=== PATIENT | male | born 1935 | race Caucasian/White ===

== ENCOUNTER 2017-08-12 04:23 | Inpatient (IN) | payer MEDICARE, OTHER ==
[~2017-08-12] VITALS: Ht 170.2 cm; Wt 65.1 kg
[2017-08-12] MEDS ORDERED: ZOLO50TA PO (04:36)
[2017-08-12 05:18] LABS: BASO % 0.3 % (0.0-1.0); EOS % 0.1 % (0.0-3.0); IMMATURE GRANULOCYTE % 0.6 % (0-0); LYMPH # 0.7 10^3/uL (1.5-4.5); LYMPH % 6.3 % (24.0-44.0); MEAN CORPUSCULAR HEMOGLOBIN 33.3 pg (27.0-33.0); MEAN CORPUSCULAR HGB CONC 34.7 g/dl (32.0-36.5); MONO % 8.1 % (0.0-5.0); NEUTROPHILS # 9.9 10^3/uL (1.8-7.7); NEUTROPHILS % 84.6 % (36.0-66.0); PLATELET COUNT, AUTOMATED 195 10^3/uL (150-450); RED CELL DISTRIBUTION WIDTH 13.2 % (11.5-14.5); VENOUS BASE EXCESS -0.6 (-2.0-2.0); VENOUS O2 SATURATION 52.9 % (60.0-80.0); VENOUS PARTIAL PRESSURE CO2 40.6 mmHg (38.0-50.0); VENOUS PARTIAL PRESSURE O2 28.3 mmHg (30.0-50.0); VENOUS TOTAL CO2 25.4 MEQ/L (24.0-28.0); WHITE BLOOD COUNT 11.7 10^3/uL (4.0-10.0)
--- NOTE | 2017-08-12 05:40 | REPUSA ---
CLINICAL HISTORY: Altered mental status. TECHNIQUE: Multiple axial CT images were obtained through the brain without IV contrast material. COMMENTS: Comparison to prior exam performed on 08/26/2016. Unchanged left cerebellar chronic encephalomalacia. There is normal configuration of sella turcica. There are no intra or extra-axial collections. There is no mass effect or midline shift. There is no evidence of hematoma formation. No hydrocephalus is p resent. The ventricles are symmetrical. No abnormal calcifications are present. There is diffuse age-appropriate cerebellar and cerebral atrophy with proportionally dilated ventricl es and cortical sulci. There are bilateral periventricular and subcortical white matter hypolucencies compatible with mild c hronic microvascular disease. Otherwise, no significant focal abnormalities are seen either in the posterior fossa or supratentoria l compartment. IMPRESSION: 1. Age-appropriate cerebellar and cerebral atrophy. 2. Mild chronic microvascular disease. 3. No evidence of acute intracranial pathology. Unchanged cerebellar chronic encephalomalacia. Thank you for your kind referral of this patient.
[2017-08-12 05:44] LABS: ALBUMIN 3.2 GM/DL (3.2-5.2); ALKALINE PHOSPHATASE 62 U/L (45-117); ALT/SGPT 41 U/L (12-78); ANION GAP 7 MEQ/L (8-16); AST/SGOT 138 U/L (7-37); BILIRUBIN,DIRECT 0.2 MG/DL (0.0-0.2); BILIRUBIN,TOTAL 0.9 MG/DL (0.2-1.0); BLOOD UREA NITROGEN 22 MG/DL (7-18); CALCIUM LEVEL 8.4 MG/DL (8.8-10.2); CARBON DIOXIDE LEVEL 29 MEQ/L (21-32); CHLORIDE LEVEL 105 MEQ/L (98-107); CREATININE FOR GFR 0.97 MG/DL (0.70-1.30); GLOMERULAR FILTRATION RATE > 60.0 (>35); GLUCOSE, FASTING 93 MG/DL (83-110); POTASSIUM SERUM 3.4 MEQ/L (3.5-5.1); SODIUM LEVEL 141 MEQ/L (136-145); TOTAL PROTEIN 6.4 GM/DL (6.4-8.2)
[2017-08-12] MEDS ORDERED: NS 1,000 ML IV ONE (06:30)
[2017-08-12 07:10] LABS: METHADONE URINE NEGATIVE (NEGATIVE)
[2017-08-12] MEDS ORDERED: NS 500 ML IV ONE (08:15)
--- NOTE | 2017-08-12 08:50 | REP ---
Clinical: Altered mental status. Comparison: None. Findings: Mediastinum and cardiac silhouette are within normal limits. Hiatal hernia suggested. Lung aden demonstrate chronic interstitial changes and trace basilar atelectasis cannot be excluded. No pleural effusion. Skeletal structures demonstrate degenerative changes. There is a curvilinear veil of opacity involving the right hemithorax paralleling the inner margin of the right chest wall which likely represents artifact and less likely pneumothorax. Correlation however is recommended. Impression: 1. Chronic-appearing changes cannot exclude trace basilar atelectasis. 2. Veil of opacity parallels the right chest wall likely artifact and less likely pneumothorax. However, correlation is recommended. Signed by Asif Meeks MD 08/12/2017 08:43 A
[2017-08-12] MEDS ORDERED: ONDANSETRON 4MG/2ML VIAL (J2405) IV PRN (09:15)
[2017-08-12] MEDS ORDERED: VITA10002 PO (09:53)
[2017-08-12] MEDS ORDERED: FISH1000 PO (09:53)
[2017-08-12] MEDS ORDERED: BUDE3CAP PO (09:53)
[2017-08-12] MEDS ORDERED: FLOM5CAP PO (09:53)
[2017-08-12] MEDS ORDERED: CARB25TA PO (09:53)
[2017-08-12] MEDS ORDERED: ASPI81CH3 PO (09:53)
[2017-08-12] MEDS ORDERED: METO5TAB2 PO (10:03)
[2017-08-12 10:32] LABS: OSMOLALITY SERUM 295 MOSM/KG (280-301)
--- NOTE | 2017-08-12 10:32 | HPE ---
DATE OF ADMISSION: 08/12/2017 PRIMARY CARE PROVIDER: [facility] CHIEF COMPLAINT: Fall. HISTORY OF PRESENT ILLNESS: The patient is an 81-year-old man who lives alone, who was reportedly found down at home and was unable to get up and walk. The patient, himself does not remember the circumstances of his fall. He denies any prodromal symptoms. Cannot remember if he slipped and fell. The patient did use his Life Alert to call 911. As per the emergency room documentation, the apartment smelled like urine and the patient had been crawling on the floor. He was slow to respond and only followed some commands. The patient at this time cannot recall what happened but he remembers being on the floor. Remembers attempting to crawl and get to the phone but was unable to. He denies head trauma. He denies any pain at the present time. Denies feeling unwell and that he feels too weak. He is unable to walk. PAST MEDICAL HISTORY: Depression. Constipation. Benign prostatic hypertrophy. Dementia. Anemia. Celiac disease. Gastroesophageal reflux disease. Dyslipidemia. Osteoarthritis. Peripheral vascular disease. HOME MEDICATIONS: The patient is unable to recall his medications. This has not been reviewed by pharmacy as yet. I did ask the pharmacy to review his medications and hopefully a medical record and possibly obtaining a list from [facility]. PAST SURGICAL HISTORY: Right total knee replacement. Bilateral cataract surgery. ALLERGIES: No known drug allergies SOCIAL HISTORY: He lives alone. He has a sister who is 85. He smoked cigars for 15 years. He has not smoked for many years and has not had alcohol for many years. FAMILY HISTORY: Noncontributory. REVIEW OF SYSTEMS: Negative except for the history of present (HPI). PHYSICAL EXAMINATION: Temperature 99.3, pulse 78, respiratory rate 16, blood pressure 142/67, oxygen saturation 97% on room air. GENERAL: He is a frail elderly man sitting up on a stretcher. He is awake, alert, and oriented times three. He mumbles his responses and is slow to respond but does give appropriate answers to all questions and admits when he is unable to remember details. HEENT: He is normocephalic, atraumatic. He has mildly dry mucous membranes. No raise in CVP. CARDIOVASCULAR: S1, S2 regular. RESPIRATORY: Exam is actually quite clear. ABDOMEN: Benign. EXTREMITIES: No clubbing cyanosis or edema. NEURO: Exam is nonfocal. LABORATORY STUDIES: WBC 11.7, hemoglobin 11.8, platelet count 195. Chemistry panel: Sodium 141, potassium 3.4, chloride 105, bicarbonate 29, BUN 22, creatinine 0.9. Lactic acid 1.4. AST elevated at 138, ammonia is less than 10. CK is elevated at 5922, troponin 0.15. A repeat 2 hours later is 0.12. TSH within normal limits. Toxicology is unremarkable. Urinalysis: 4 WBC, 2+ urobilinogen, 3+ blood and 1+ ketones, 2+ protein. Urine cultures and blood cultures are currently pending. IMAGING: The patient had a chest x-ray which reveals chronic appearing changes, alveolar opacity parallels the right chest wall likely artifact and less likely pneumothorax. He also did have a CT scan of the head which revealed age-appropriate cerebellar and cerebral atrophy with mild chronic microvascular disease. No evidence of acute intracranial pathology. ASSESSMENT/PLAN: This is an 81-year-old man status post an unwitnessed syncopal episode and was unable to get up presenting with rhabdomyolysis. PROBLEMS: 1. Syncope: The etiology remains unclear. The patient does have some evidence of documented history of dementia. At the present time, he is oriented times three. However, we will obtain records from his primary care provider and begin syncope workup. We will continue to monitor him on telemetry. Monitor his cardiac enzymes. Will check orthostatics. Order an echocardiogram. I will also check a respiratory PCR panel as he does cough during my examination. He tells me that this is new. This may be secondary to a viral syndrome. There is also the possibility that this is related to a urinary tract infection, although his urine is not terribly impressive. He was reportedly incontinence at home. I am going on the side of caution and start him on ceftriaxone IV every 24 hours and followup culture data with threshold to discontinue if it return negative. He did not have any focal deficits or any neurological deficits. At this time I will hold on getting an MRI of the brain. It does not appear as though he is having a cerebrovascular accident (CVA). We will also obtain his home medication list and piece it together. Patient/Family Services (PFS) consultation will be placed as the patient lives alone as may not be suitable to return there. I will also involve physical therapy (PT) and occupational therapy (OT) as well. 2. Rhabdomyolysis: The patient was down on the ground for an unknown length of time likely secondary to this. We will provide him with IV fluids, monitor his renal function closely and trend his CKs in the progressive care unit. 3. Elevated AST likely related to rhabdomyolysis. 4. Hypokalemia: Mild. Will continue to recycle his electrolytes and recheck a BMP this afternoon and replace as needed. 5. Dementia: The patient has a normal TSH. He had a reported history of depression and on our documentation was previously on sertraline. Will obtain a previous records. Dementia appears to be mild to moderate at this time. 6. Benign prostatic hypertrophy (BPH): He was positive for a documented history of this. He is on no medication, so we are starting him on medications as needed. 7. Celiac disease: Put him on a gluten-free diet. 8. Deep venous thrombosis prophylaxis: SCDs & TEDS DISPOSITION: Possible placement pending improvement. I will continue to follow his clinical status closely. IDRIS
[2017-08-12 11:10] VITALS: BP 128/61
[2017-08-12] MEDS: CEFTRIAXONE SOD 1 GM in APPROPRIATE DILUENT 1 EA IV SCH (11:15)
[2017-08-12] MEDS: ENOXAPARIN 40 MG/0.4 ML SYRINGE (J1650) SC SCH (11:15)
[2017-08-12] MEDS: NS 1,000 ML IV SCH ×2 (11:15→21:20)
[2017-08-12 14:00] VITALS: BP_SYST 128; BP_SYST 151; BP_DIAS 62; BP_DIAS 72
[2017-08-12 15:54] LABS: ANION GAP 7 MEQ/L (8-16); BLOOD UREA NITROGEN 21 MG/DL (7-18); CALCIUM LEVEL 8.4 MG/DL (8.8-10.2); CARBON DIOXIDE LEVEL 24 MEQ/L (21-32); CHLORIDE LEVEL 109 MEQ/L (98-107); GLOMERULAR FILTRATION RATE > 60.0 (>35); GLUCOSE, FASTING 102 MG/DL (83-110); POTASSIUM SERUM 3.7 MEQ/L (3.5-5.1); SODIUM LEVEL 140 MEQ/L (136-145)
[2017-08-12 16:00] VITALS: BP 154/74
[2017-08-12] MEDS: ACETAMINOPHEN TAB 650MG DOSE (2X325MG) PO PRN (17:08)
[2017-08-12] MEDS ORDERED: METOCLOPRAMIDE 5 MG TAB PO PRN (18:00)
[2017-08-12] MEDS ORDERED: IBUPROFEN 400 MG TAB PO PRN (18:00)
[2017-08-12 20:00] VITALS: BP 152/74
[2017-08-12] MEDS: SINEMET 25-100 MG TAB PO SCH (21:20)
[2017-08-12] MEDS: TAMSULOSIN 0.4 MG CAP PO SCH (21:20)
[2017-08-13] VITALS (9 sets, daily range): BP systolic 72–178; BP diastolic 67–89
[2017-08-13] MEDS ORDERED: hydrALAZINE INJ 20 MG/ML VIAL IV ONE (04:30)
[2017-08-13] MEDS: AZITHROMYCIN INJ 500 MG, VIAL MATE ADAPTER 1 EACH in D5W 250 ML IV SCH (06:51)
[2017-08-13 08:00] LABS: ALBUMIN 2.7 GM/DL (3.2-5.2); ALBUMIN/GLOBULIN RATIO 0.71 (1.00-1.93); ALKALINE PHOSPHATASE 60 U/L (45-117); ALT/SGPT 52 U/L (12-78); ANION GAP 8 MEQ/L (8-16); AST/SGOT 138 U/L (7-37); BILIRUBIN,TOTAL 0.5 MG/DL (0.2-1.0); BLOOD UREA NITROGEN 21 MG/DL (7-18); CARBON DIOXIDE LEVEL 27 MEQ/L (21-32); CHLORIDE LEVEL 107 MEQ/L (98-107); CREATININE FOR GFR 0.94 MG/DL (0.70-1.30); GLOMERULAR FILTRATION RATE > 60.0 (>35); GLUCOSE, FASTING 89 MG/DL (83-110); POTASSIUM SERUM 3.4 MEQ/L (3.5-5.1); SODIUM LEVEL 142 MEQ/L (136-145); TOTAL PROTEIN 6.5 GM/DL (6.4-8.2)
--- NOTE | 2017-08-13 08:04 | ECGEPIP ---
Stationary ECG Study [facility] - ED Test Date: 2017-08-12 Pat Name: JHON FOSS Department: Room: - Gender: M Wrapper Counter: KELLEY : 1935 Requested By: ARCELIA Goldman Order Number: [id number] Reading MD: Mago Guillaume Measurements Intervals [place] Rate: 80 P: -7 CO: 152 QRS: -43 QRSD: 112 T: 38 QT: 393 QTc: 454 Interpretive Statements SINUS RHYTHM WITH OCCASIONAL SUPRAVENTRICULAR PREMATURE COMPLEXES MARKED LEFT AXIS DEVIATION MODERATE INTRAVENTRICULAR CONDUCTION DELAY MODERATE VOLTAGE CRITERIA FOR LVH, CONSIDER NORMAL VARIANT NO PRIOR FOR COMPARISON Electronically Signed On 08-13-2017 8:03:51 EST by Mago Guillaume
[2017-08-13] MEDS: ASPIRIN 81 MG CHEW TABLET PO SCH (09:37)
[2017-08-13] MEDS: CYANOCOBALAMIN 500 MCG TAB PO SCH (09:38)
[2017-08-13] MEDS: ENOXAPARIN 40 MG/0.4 ML SYRINGE (J1650) SC SCH (09:38)
[2017-08-13] MEDS: BUDESONIDE EC 3 MG CAP (ENTOCORT EC) PO SCH (09:38)
[2017-08-13] MEDS: SINEMET 25-100 MG TAB PO SCH ×3 (09:38→20:37)
[2017-08-13 11:31] LABS: MAGNESIUM LEVEL 2.2 MG/DL (1.8-2.4)
[2017-08-13] MEDS: CEFTRIAXONE SOD 1 GM in APPROPRIATE DILUENT 1 EA IV SCH (12:14)
[2017-08-13] MEDS: NS 1,000 ML IV SCH (13:21)
[2017-08-13] MEDS ORDERED: POTASSIUM CHLORIDE 10 MEQ SR TABLET PO ONE (16:15)
[2017-08-13 17:14] LABS: MEAN CORPUSCULAR HEMOGLOBIN 32.8 pg (27.0-33.0); MEAN CORPUSCULAR HGB CONC 34.5 g/dl (32.0-36.5); MEAN CORPUSCULAR VOLUME 95.1 fl (80.0-96.0); PLATELET COUNT, AUTOMATED 173 10^3/uL (150-450); RED CELL DISTRIBUTION WIDTH 13.2 % (11.5-14.5); WHITE BLOOD COUNT 7.9 10^3/uL (4.0-10.0)
[2017-08-13 17:40] LABS: VITAMIN B12 LEVEL 646 PG/ML (247-911)
--- NOTE | 2017-08-13 17:42 | IPN ---
DATE: 08/13/2017 SUBJECTIVE: The patient tells me that he is "having the shits." He tells me that he feels better than yesterday. He tells me that he was unable to walk yesterday, but today he is able to get up and get to the commode. He is awake, alert and oriented times three. He is very slow to answer questions, but does provide appropriate responses. OBJECTIVE: VITAL SIGNS: Maximum temperature (T-max) 100.3 yesterday evening, around 6 p.m., temperature at 99.1, pulse 95, respiratory rate 18, blood pressure 145/82, oxygen saturation 97% on room air. GENERAL: He is a disheveled, elderly man who was sleeping when I entered the room, but easily arousable by verbal stimuli and then immediately stands up and walks to the bedside commode, where he begins to have a bowel movement. He does not appear to be in acute distress. HEENT: Cranial nerves II-XII grossly intact. He has moist mucous membranes. No elevation of central venous pressure (CVP). CARDIOVASCULAR: S1, S2. He is mildly tachycardic. RESPIRATORY EXAMINATION: Clear. ABDOMINAL EXAMINATION: Bowel sounds present. Abdomen soft. EXTREMITIES: No clubbing, cyanosis or edema. LABORATORY STUDIES: Today, chemistry panel: Sodium 142, potassium 3.4, repleted, chloride 107, bicarbonate 27, BUN 21, creatinine 0.9, magnesium 2.2. AST remains elevated at 130. CK is 4400, down from 5900 yesterday at the time of admission. Thyroid stimulating hormone (TSH) within normal limits. Ammonia level within normal limits. He did have some mild elevation of troponin at 0.15, which has trended down to normal limits. Toxicology was negative. Urinalysis was fairly unremarkable. Microbiology: Blood cultures were negative. Urine cultures are negative. Respiratory polymerase chain reaction (PCR) panel is negative. Imaging: Patient had a chest x-ray that revealed chronic-appearing changes as well as CT scan of the head, which revealed age-appropriate cerebellar and cerebral atrophy and mild, chronic microvascular disease. No evidence of acute intracranial pathology. Unchanged cerebellar chronic encephalomalacia. ASSESSMENT AND PLAN: This is an 81-year-old man status post an unwitnessed syncopal episode and was unable to get up, presenting with rhabdomyolysis. PROBLEMS: 1. Syncope. The etiology remains unclear. The patient is oriented, but very slow to respond. His neurological examination was nonfocal; however, given his CT findings, I do have some mild concern for frontal temporal dementia or vascular dementia and as such, I will elect to check for an MRI. I will also check for a B12 level, rapid plasma reagin (RPR) and rule out other etiologies. I suspect he could have acute on chronic or worsening dementia. He complains of frequent bowel movements. I will send a gastrointestinal (GI) polymerase chain reaction (PCR) panel to rule out any infectious etiologies. He has had a fever and I suspect this syndrome is presenting as secondary to an infectious etiology; however, thus far, all of his infectious workup has been negative. He has remained on empiric ceftriaxone and azithromycin. It is also certainly possible that his dementia is partly related to his Parkinson's disease. At this time, he does appear to be improving in term of his functional status, as yesterday, he was unable to get up. He is spontaneously ambulating around his room today, which appears to be quite a significant improvement. An echocardiogram has been ordered. 2. Rhabdomyolysis. We will continue with intravenous (IV) fluids. His rhabdomyolysis appears secondary to him being down for an unknown length of time. 3. Elevated AST. Related to rhabdomyolysis and elevated CK. 4. Hypokalemia. Repleted. 5. Dementia. As outlined above. Likely Parkinson's associated. 6. Benign prostatic hypertrophy (BPH). He is on Flomax 0.8 at bedtime. 7. Parkinson's. He is on Sinemet three times a day and has improved today on this medication. 8. B12 deficiency. He is on supplementation. 9. Deep venous thrombosis (DVT) prophylaxis. He is on Lovenox. 10. Celiac disease. He is on a gluten-free diet. DISPOSITION: Pending physical therapy and occupational therapy evaluation and being fever-free for 24 hours, improvement in his rhabdomyolysis and echocardiogram, as well as diarrhea.
[2017-08-13] MEDS: TAMSULOSIN 0.4 MG CAP PO SCH (20:37)
--- NOTE | 2017-08-13 21:42 | REP ---
Clinical: Diarrhea. Comparison: 08/26/2016. Findings: Lung bases demonstrate mild bibasilar infiltrates suggesting multifocal pneumonia. Large paraesophageal gastric hiatal hernia is unchanged. No evidence for cardiomegaly. Liver, spleen, pancreas, and gallbladder appear normal/stable for noncontrast evaluation. Bilateral adrenal lesions likely representing adenomas are unchanged. Kidneys demonstrate chronic bilateral perinephric stranding without hydroureteronephrosis. The enteric system demonstrates moderate fecal stasis and constipation is suggested. There is no evidence for bowel obstruction and the small bowel is nondilated. Colonic and sigmoid diverticula noted without acute diverticulitis. Pelvis demonstrates stable right bladder diverticulum along with stable enlarged prostate gland. No pelvic fluid or ascites. No intraperitoneal or retroperitoneal adenopathy. No free air. Extensive atherosclerotic changes to the vasculature noted without aneurysm. Musculoskeletal structures demonstrate age-related degenerative changes without focal osseous abnormality. Impression: 1. Lung bases suggest mild multifocal pneumonia along with underlying chronic interstitial changes. 2. Moderate fecal stasis without evidence for bowel obstruction or acute inflammatory process. Colonic diverticula are identified but without evidence for acute diverticulitis. 3. No acute abdominopelvic pathology. No free fluid. No adenopathy. 4. Further chronic changes as described above including chronic perinephric stranding, right bladder diverticulum, mildly enlarged prostate gland, atherosclerotic changes to the vasculature and degenerative changes the musculoskeletal structures. Signed by Asif Meeks MD 08/13/2017 09:33 P
--- NOTE | 2017-08-13 22:50 | REPUSA ---
CLINICAL HISTORY: Altered mental status TECHNIQUE: MRI of the Brain without gadolinium. Multiplanar T1 and T2 weighted images of the brain we re obtained. COMPARISON: August 12, 2017 CT head. T1 and T2: There is chronic change in the form of bilateral frontal, left temporoparietal and left ce rebellar encephalomalacia. There is periventricular volume loss with ex vacuo dilation of the ventric les. No mass effect or midline shift. FLAIR: Advanced white matter hyperintensity consistent with small vessel ischemic disease. Vascular flow voids: Preserved, without visible stricture or aneurysm on this non-angiographic exam. Midline: Pituitary normal size. Brain stem and corpus callosum appear normal. Sinuses: Partially visualized sinuses and mastoid aircells are clear. Diffusion Imaging: No regions of abnormal hyperintensity to suggest acute ischemia. Gradient Echo: Sequelae of hemorrhagic blood products are noted within the bilateral frontal,. Left t emporoparietal and periventricular white matter consistent with prior infarctions with hemorrhagic tr ansformation IMPRESSION: Pronounced changes of periventricular and deep matter nonacute ischemic change, as well a s lobar encephalomalacia of the bilateral frontal, left temporoparietal and left cerebellar lobes, wi thout evidence of acute ischemia.
[2017-08-14] VITALS (7 sets, daily range): BP systolic 120–164; BP diastolic 66–78
[2017-08-14] MEDS: NS 1,000 ML IV SCH ×3 (06:20→20:33)
[2017-08-14] MEDS: AZITHROMYCIN INJ 500 MG, VIAL MATE ADAPTER 1 EACH in D5W 250 ML IV SCH (06:20)
[2017-08-14 06:39] LABS: ALBUMIN 2.5 GM/DL (3.2-5.2); ALBUMIN/GLOBULIN RATIO 0.66 (1.00-1.93); ALKALINE PHOSPHATASE 48 U/L (45-117); ALT/SGPT 24 U/L (12-78); ANION GAP 6 MEQ/L (8-16); AST/SGOT 140 U/L (7-37); BILIRUBIN,TOTAL 0.3 MG/DL (0.2-1.0); BLOOD UREA NITROGEN 19 MG/DL (7-18); CALCIUM LEVEL 8.1 MG/DL (8.8-10.2); CARBON DIOXIDE LEVEL 25 MEQ/L (21-32); CHLORIDE LEVEL 110 MEQ/L (98-107); CREATININE FOR GFR 0.83 MG/DL (0.70-1.30); GLOMERULAR FILTRATION RATE > 60.0 (>35); GLUCOSE, FASTING 96 MG/DL (83-110); SODIUM LEVEL 141 MEQ/L (136-145); TOTAL PROTEIN 6.3 GM/DL (6.4-8.2)
[2017-08-14] MEDS: ENOXAPARIN 40 MG/0.4 ML SYRINGE (J1650) SC SCH (09:39)
[2017-08-14] MEDS: BUDESONIDE EC 3 MG CAP (ENTOCORT EC) PO SCH (09:39)
[2017-08-14] MEDS: CYANOCOBALAMIN 500 MCG TAB PO SCH (09:40)
[2017-08-14] MEDS: SINEMET 25-100 MG TAB PO SCH ×3 (09:41→20:30)
[2017-08-14] MEDS: ASPIRIN 81 MG CHEW TABLET PO SCH (09:41)
[2017-08-14] MEDS: CEFTRIAXONE SOD 1 GM in APPROPRIATE DILUENT 1 EA IV SCH (11:50)
--- NOTE | 2017-08-14 12:54 | CR ---
DATE OF CONSULTATION: 08/14/2017 CONSULTATION FOR: Pat Cowan MD. REASON FOR CONSULTATION: Rhabdomyolysis. HISTORY OF PRESENT ILLNESS: Mr. Concepcion is a 81-year-old gentleman with known history of depression, dementia, gastroesophageal reflux disease and dyslipidemia. He apparently fell at home and was admitted to [facility] a couple of days ago. The patient was found to have a CPK level of about 4500. He is being hydrated with IV fluid, however, his CPK level is not improving. A nephrology consultation was requested today and the patient is seen on his bedside. PAST MEDICAL AND SURGICAL HISTORY: Significant for: 1. History of benign prostatic hyperplasia (BPH). 2. Dementia. 3. History of celiac disease. 4. History of gastroesophageal reflux disease. 5. Osteoarthritis. 6. Dyslipidemia. 7. Depression. 8. History of peripheral vascular disease without any details known. Past surgical history is significant for a right total knee replacement and bilateral cataract surgery. CURRENT MEDICATIONS IN THE HOSPITAL: Include: azithromycin 500 mg intravenously daily, ceftriaxone 1 gram every 24 hours, aspirin 81 mg daily, Entocort 9 mg daily by mouth, vitamin B12 1000 mcg daily, Sinemet 25/100 mg three times a day, Flomax 0.8 mg at bedtime, Reglan 5 mg twice a day as needed constipation, Advil 400 mg every 8 hours as needed pain, Zofran 4 mg every 6 hours as needed nausea, IV fluid normal saline at 75 mL per hour and Lovenox 40 mg subcutaneous daily. ALLERGIES: The patient has no known drug allergies. PERSONAL AND SOCIAL HISTORY: The patient lives alone. He has a sister who is 85-year-old. He smokes cigars for 15 years. There is no history of alcohol use. FAMILY HISTORY: Is noncontributory in this elderly gentleman. REVIEW OF SYSTEMS: The patient is not a good historian. He denies any fever or chills. He feels that he probably fell at home, however, could not recall any exact circumstances. He feels weak but denies any headache or dizziness. Ears, nose and throat are unremarkable. Cardiovascular system is negative for dyspnea, chest pain or leg edema. Respiratory system is negative for cough or hemoptysis. The patient denies any pleuritic type of chest pain. He is receiving ceftriaxone and azithromycin. GI system is negative for nausea, vomiting or diarrhea. system is negative for dysuria or hematuria. He does have a history of prostatic enlargement. Musculoskeletal system is significant for arthritis and history of fall. There is no history of leg edema. Neurological system is significant for dementia and possible Parkinson's disease. Psychosocial system is negative for depression or anxiety. Skin is negative for rash or ulcers. Endocrine system is negative for diabetes or thyroid problems. PHYSICAL EXAMINATION: This is an elderly gentleman lying in the bed without any acute distress. Temperature is 99 degrees Fahrenheit, heart rate 78 per minute and respiratory rate 18 per minute. Blood pressure 134/66 mmHg and oxygen saturation 97% on room air. Head is atraumatic. Neck is supple and without jugular venous distention (JVD) or thyroid enlargement. Pupils equal and reactive to light and sclera is anicteric. Ears, nose and throat are unremarkable. Heart exam reveals regular S1-S2. There is no pericardial friction rub. Lungs sound clear to auscultation bilaterally. Abdomen is soft, nontender and there is no palpable organomegaly. Bowel sounds normal. Extremities have no cyanosis or clubbing. Skin has no rash or ulcers. Neurologically he is able to get up and move around. There is no focal neurological deficit. The patient is awake and alert. LABORATORY DATA: Today's labs show WBC count 7.9, hemoglobin 10.1 and hematocrit 29.3. Platelets are 173. Yesterday his CPK level was 4543 and today it is 4511. BUN is 19 and creatinine 0.83. Sodium 141 and potassium 4.0. Glucose 96, total protein 6.3 and albumin 2.5. Urinalysis showed 2+ protein and 3+ blood. He had four WBCs and three RBCs. Abdominal and pelvic CAT scan showed a possible multifocal pneumonia with underlying chronic interstitial changes. No abdominopelvic pathology was noted. Head MRI showed no acute ischemia. He does have pronounced changes of periventricular and deep matter nonacute ischemic change. PROBLEMS: 1. Rhabdomyolysis related to a recent fall. The patient is being hydrated with IV fluid and I will increase to 120 per hour in order to increase his urine output. The patient is moving around and we will encourage to continue doing so. His renal function is normal at this point and he has good urine output. We hope that his CPK level will improve. His rhabdomyolysis seems to be only mild. 2. Possible infiltrate on lungs. The patient is currently receiving ceftriaxone and azithromycin. I am going to stop his azithromycin and will continue with ceftriaxone alone in addition to nebulizers. 3. Benign prostatic hyperplasia (BPH). The patient denies any urinary symptoms. He remains on Flomax 0.8 mg at bedtime. I thank you for involving me in the care of Mr. Concepcion. I will follow him along with you.
--- NOTE | 2017-08-14 13:40 | IPN ---
DATE: 08/14/2017 SUBJECTIVE: Today, the patient tells me that he feels alright. He is oriented to person, place and time and to situation. He is very slow to answer but provides correct responses. He is concerned about the amount of pills that he is taking and wants to review them with the nurse. Otherwise, no specific complaints. OBJECTIVE: VITAL SIGNS: Maximum temperature (t-max) 99.3, temperature 99.3, pulse 81, respiratory rate 20, blood pressure 128/67, oxygen saturation 98% on room air. GENERAL: He is a frail, elderly, man lying flat in bed. He does not appear to be in any acute distress. HEENT: He has masked like face and moist mucous membranes. No elevation in central venous pressure. CARDIOVASCULAR EXAM: S1, S2 regular. RESPIRATORY EXAM: Clear. ABDOMINAL EXAM: Benign. EXTREMITIES: No clubbing, cyanosis or edema. LABORATORY STUDIES: WBC 7.9, hemoglobin 10, platelet count 173. Chemistry panel: Sodium 141, potassium 4.0, chloride 110, bicarbonate 25, BUN 19, creatinine 0.8, CK remains elevated at 4500. TSH within normal limits. B12 is within normal limits. Ammonia level is within normal limits. Toxicology is negative. Syphilis nonreactive. Microbiology: Respiratory panel is negative. GI PCR panel is pending. Urine culture is negative. Blood culture negative times two. Imaging: The patient had MRI of the brain, which revealed changes in the periventricular deep matter, nonacute ischemic changes, as well as lobar encephalomalacia in bilateral frontal, left temporoparietal and left cerebral lobes without evidence of acute ischemia. I discussed the case with Dr. Camarena personally, who also small chronic infarct in the left cerebral hemisphere, old hemorrhagic infarct of the basal ganglia and old infarcts in the internal capsule and cerebellum. ASSESSMENT AND PLAN: This is an 81-year-old man who presented status post syncopal episode and found to be in rhabdomyolysis. 1. Syncope. He may have had an acute fall related to possible pneumonia seen on CT scan. Based on the infiltrates on the CT scan, he remains on ceftriaxone and azithromycin is continued by Dr. Beckwith. There is also concern that the patient is on Sinemet and has a history of Parkinson's disease and is predisposed to falls. I suspect that he also has some vascular dementia. Given he has no history of CVA, but MRI is revealing numerous previous infarcts, including the areas of the cerebellum, which will probably make him more prone to gait instabilities. We will have him work with physical therapy (PT) and occupational therapy (OT). 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 The patient has no previous diagnosis of CVA, but he has had multiple infarcts. We are monitoring him on telemetry without any arrhythmia. We will check an echocardiogram with carotid duplex and MRA. We will check a lipid panel and an A1/c. We will also start him on a statin. He is already on an aspirin. 3. Rhabdomyolysis. CK is mildly elevated but persistently elevated without improvement with normal saline. I have asked Dr. Beckwith to help and see the patient, as renal function does appear to be remaining stable at this time. 4. Elevated AST related to elevated CK. 5. Benign prostatic hypertrophy (BPH). The patient is on Flomax. 6. Parkinson's disease. On Sinemet three times a day. 7. B12 deficiency. He is on supplementation. 8. Celiac disease. He is on a gluten free diet. 9. Deep vein thrombosis (DVT) prophylaxis. He is on Lovenox. DISPOSITION: Pending improvement in his renal function. Physical therapy (PT) and test results.
[2017-08-14] MEDS: ALBUTEROL SULFATE 2.5 MG/0.5 ML INH NEB SOLN NEB SCH ×2 (13:53→21:31)
--- NOTE | 2017-08-14 16:00 | REP ---
Clinical: Cerebrovascular accident . Technique: Ordonez scale and color Doppler evaluation using linear high frequency transducer Findings: Two-dimensional ordonez scale and color images demonstrate mild atheromatous plaquing to the carotid bulbs where minimal narrowing is appreciated. Color Doppler interrogation demonstrates normal arterial wave patterns and velocities with moderate spectral broadening. Normal flow direction is appreciated in the bilateral vertebral arteries. RIGHT (cm/s) LEFT (cm/s) ICA peak systolic velocity 75.0 58.4 ICA diastolic velocity 21.1 39.1 ECA peak systolic velocity 50.6 45.6 CCA peak systolic velocity 58.5 68.5 ICA/CCA ratio 1.28 0.85 Impression: Based on set standards narrowing falls within the less than 50% range. Signed by Asif Meeks MD 08/14/2017 03:52 P
--- NOTE | 2017-08-14 20:20 | REPUSA ---
Clinical history: slurred speech. Technique: [id number] MRA images of the brain were obtained without administration of contrast. 3 -D MIP images were also obtained. Findings: The vascular structures extending from the distal carotid and vertebrobasilar arterial syst ems, through the [place] of [place], demonstrate normal caliber and contour. There is no evidence of an eurysm, stenosis, or thrombosis. Impression: Unremarkable MRA examination of the brain.
[2017-08-14] MEDS: TAMSULOSIN 0.4 MG CAP PO SCH (20:30)
[2017-08-15] MEDS: ALBUTEROL SULFATE 2.5 MG/0.5 ML INH NEB SOLN NEB SCH ×3 (02:00→20:46)
[2017-08-15] MEDS: NS 1,000 ML IV SCH ×3 (05:14→23:45)
[2017-08-15 06:20] LABS: ALBUMIN 2.1 GM/DL (3.2-5.2); ALBUMIN/GLOBULIN RATIO 0.72 (1.00-1.93); ALKALINE PHOSPHATASE 43 U/L (45-117); ALT/SGPT 38 U/L (12-78); ANION GAP 9 MEQ/L (8-16); AST/SGOT 136 U/L (7-37); BILIRUBIN,TOTAL 0.2 MG/DL (0.2-1.0); BLOOD UREA NITROGEN 24 MG/DL (7-18); CALCIUM LEVEL 7.7 MG/DL (8.8-10.2); CARBON DIOXIDE LEVEL 23 MEQ/L (21-32); CHLORIDE LEVEL 112 MEQ/L (98-107); CHOLESTEROL LEVEL 161 MG/DL (<200); CREATININE FOR GFR 0.72 MG/DL (0.70-1.30); GLOMERULAR FILTRATION RATE > 60.0 (>35); GLUCOSE, FASTING 90 MG/DL (83-110); POTASSIUM SERUM 3.8 MEQ/L (3.5-5.1); SODIUM LEVEL 144 MEQ/L (136-145); TRIGLYCERIDES LEVEL 70 MG/DL (<150)
[2017-08-15] MEDS: LevoFLOXacin 500 MG TABLET PO SCH (07:00)
[2017-08-15 08:30] VITALS: BP 137/67
[2017-08-15] MEDS: ASPIRIN 81 MG CHEW TABLET PO SCH (08:42)
[2017-08-15] MEDS: CYANOCOBALAMIN 500 MCG TAB PO SCH (08:42)
[2017-08-15] MEDS: SINEMET 25-100 MG TAB PO SCH ×3 (08:42→20:44)
[2017-08-15] MEDS: BUDESONIDE EC 3 MG CAP (ENTOCORT EC) PO SCH (08:42)
[2017-08-15] MEDS: ENOXAPARIN 40 MG/0.4 ML SYRINGE (J1650) SC SCH (08:42)
[2017-08-15 12:00] VITALS: BP 122/72
--- NOTE | 2017-08-15 12:09 | IPN ---
DATE: 08/15/2017 SUBJECTIVE: The patient tells me he is feeling well. Tells me that he feels almost normal. His awake, alert and oriented to person, place and time and to situation. He is slow to respond but give appropriate answers. OBJECTIVE: VITAL SIGNS: Temperature 99.1, T-max 99.9, pulse 80, respiratory rate 19, blood pressure 115/73, oxygen saturation 98% on room air. GENERAL: He is a pleasant, elderly, man sitting in a recliner. He does not appear to be in any acute distress. HEENT: Cranial nerves II through XII grossly intact. He has moist mucous membranes. No elevation in central venous pressure. CARDIOVASCULAR EXAM: S1, S2 regular. RESPIRATORY EXAM: Clear. ABDOMINAL EXAM: Benign. EXTREMITIES: No clubbing, cyanosis or edema. LABORATORY STUDIES: WBC 7.9, hemoglobin 10.1, platelet count 173 from 08/13. Chemistry panel: Sodium 144, potassium 3.8, chloride 112, bicarbonate 23, BUN 24, A1c 5.2, CK is 4000, down trending. Lipid panel is notable for LDL of 73. Vitamin B12 within normal limits. TSH is within normal limits. Toxicology is negative. Urinalysis fairly unremarkable. Microbiology is all negative. He did have an MRA of the brain, which was an unremarkable exam and carotid duplex did not reveal any significant stenosis. ASSESSMENT AND PLAN: This is an 81-year-old man who presented status post syncope, found to be in rhabdomyolysis. 1. Syncope. He is currently being treated for community acquired pneumonia. His antibiotics have been transitioned to by mouth levofloxacin. This is day 3 of 7 of antibiotics. This was likely playing a role. He also has a history of Parkinson's and is on Sinemet, which may have predisposed him to falls. He continues to work with physical therapy and continues to improve everyday. I also suspect vascular dementia given his numerous infarcts on his MRI. 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 He had no previous diagnosis of CVA, but he has had multiple infarcts. There is no evidence of atrial fibrillation or arrhythmia on telemetry. He had an echocardiogram that is pending. Carotid duplex and MRA are unrevealing. We have started him on a statin. He is on an aspirin. He is working with physical therapy. I suspect he would benefit from placement. Patient and family services (PFS) has been made aware that he will likely require placement and possibly benefit from assisted living environment. They informed me that they will reach out to the patient's family and relations. 3. Rhabdomyolysis. Dr. Beckwith's help is greatly appreciated. CK is gradually trending down with an increased dose of normal saline. 4. Elevated AST related to rhabdomyolysis. 5. Benign prostatic hypertrophy (BPH). The patient is on Flomax. 6. Parkinson's disease. He is on Sinemet. 7. B12 deficiency. He is on supplementation. 8. Celiac disease. He is on a gluten free diet. 9. Deep vein thrombosis (DVT) prophylaxis. He is on Lovenox. DISPOSITION: Pending physical therapy (PT) and improvement in his rhabdomyolysis. He will likely need placement.
[2017-08-15 16:00] VITALS: BP 160/79
[2017-08-15 20:00] VITALS: BP 148/72
[2017-08-15] MEDS: ATORVASTATIN 20 MG TAB PO SCH (20:44)
[2017-08-15] MEDS: TAMSULOSIN 0.4 MG CAP PO SCH (20:44)
--- NOTE | 2017-08-15 21:40 | IPN ---
DATE: 08/15/2017 SUBJECTIVE: Mr. Concepcion is seen this morning on his bedside. He is sitting in the chair at the time of my visit. He remains weak but denies any acute distress. He has no nausea or vomiting. He denies any dyspnea or chest pain and has been tolerating intravenous (IV) fluid very well. PHYSICAL EXAMINATION: Temperature 98 degrees Fahrenheit, heart rate 80 per minute and respiratory rate 20 per minute. Blood pressure 122/72 mmHg and oxygen saturation 100% on room air. Intake and output records from yesterday showed total intake 3762 and output 675 mL. His head is atraumatic. Neck is supple and there is no jugular venous distention (JVD) at this point. Oral mucosa is moist and healthy. Lungs with poor inspiratory effort but no wheezing or rales. Abdomen is soft and nontender. Bowel sounds are normal. Extremities have no cyanosis or clubbing. Skin has no rash or ulcers. Neurologically, he is awake and able to answer questions. He is moving all his limbs. LABORATORY DATA: Today's labs show sodium level 144 and potassium 3.8. BUN 24 and creatinine 0.72. CPK has come down to 4041. His AST is 136, ALT 38 and alkaline phosphatase 43. Albumin is 2.1. PROBLEMS: 1. Rhabdomyolysis, mild and has started to improve. I feel that the patient is in significant positive fluid balance. I am going to cut down his IV fluid to 75 mL per hour due to risk of hypervolemia as he has been in positive fluid balance for the last two days. If his creatine phosphokinase (CPK) comes down significantly, then we can probably stop his IV fluid in next 24 hours. 2. Anemia. His anemia is mild and probably related to hemodilution. No specific intervention is indicated at this point. All other issues are being addressed by hospitalist service.
[2017-08-16] VITALS: BP 143/69
[2017-08-16] MEDS: ALBUTEROL SULFATE 2.5 MG/0.5 ML INH NEB SOLN NEB SCH ×5 (02:00→20:27)
[2017-08-16 04:45] VITALS: BP 161/70
[2017-08-16] MEDS: LevoFLOXacin 500 MG TABLET PO SCH (05:48)
[2017-08-16 06:01] LABS: ALBUMIN 2.4 GM/DL (3.2-5.2); ALBUMIN/GLOBULIN RATIO 0.75 (1.00-1.93); ALKALINE PHOSPHATASE 50 U/L (45-117); ALT/SGPT 26 U/L (12-78); ANION GAP 8 MEQ/L (8-16); AST/SGOT 118 U/L (7-37); BILIRUBIN,TOTAL 0.3 MG/DL (0.2-1.0); BLOOD UREA NITROGEN 21 MG/DL (7-18); CALCIUM LEVEL 8.1 MG/DL (8.8-10.2); CARBON DIOXIDE LEVEL 24 MEQ/L (21-32); CHLORIDE LEVEL 109 MEQ/L (98-107); CREATININE FOR GFR 0.73 MG/DL (0.70-1.30); GLOMERULAR FILTRATION RATE > 60.0 (>35); GLUCOSE, FASTING 87 MG/DL (83-110); POTASSIUM SERUM 3.8 MEQ/L (3.5-5.1); SODIUM LEVEL 141 MEQ/L (136-145); TOTAL PROTEIN 5.6 GM/DL (6.4-8.2)
[2017-08-16 06:39] LABS: MEAN CORPUSCULAR HEMOGLOBIN 33.3 pg (27.0-33.0); MEAN CORPUSCULAR HGB CONC 35.1 g/dl (32.0-36.5); PLATELET COUNT, AUTOMATED 191 10^3/uL (150-450); RED CELL DISTRIBUTION WIDTH 13.2 % (11.5-14.5); WHITE BLOOD COUNT 9.8 10^3/uL (4.0-10.0)
--- NOTE | 2017-08-16 07:31 | ECHO ---
DATE OF PROCEDURE: 08/13/2017 DATE OF : 1935 AGE: 81 REFERRING PROVIDER: Dr. Pat Cowan REASON FOR THE ECHOCARDIOGRAM: Syncope. 2D MEASUREMENTS: IVS: 1.2 cm LV: 3.6 cm LVPW: 1.2 cm LA: 3.1 cm Aorta: 3.3 cm DOPPLER MEASUREMENTS: Peak velocity across the aortic valve: 1.8 m/s Peak velocity across the LVOT: 1.5 m/s Mitral E: 0.98, Mitral A: 1.5 with a ratio of 0.7 2D COMMENTS: 1. Normal left ventricular size, wall thickness, and normal global left ventricular systolic function. The estimated global left ventricular systolic ejection fraction is 65-70%. 2. Normal left atrium. Normal right atrium and right ventricle. 3. The atrial septum appeared to be normal without evidence of defect or shunt. 4. Normal aortic root. 5. No pericardial effusion seen. 6. Mildly calcified aortic valve with normal leaflet excursion. Mildly calcified mitral annulus with normal anterior mitral valve leaflet motion. Normal tricuspid valve. The pulmonic valve and proximal pulmonary artery branches were not well visualized. 7. The inferior vena cava was not well visualized. DOPPLER: It detects trace mitral regurgitation and trace tricuspid regurgitation. The pulmonary artery systolic pressure is most likely normal. IMPRESSION: 1. Normal global left ventricular systolic function. There are features of left ventricular diastolic dysfunction manifested by abnormal relaxation. 2. Aortic valve sclerosis without stenosis or aortic regurgitation. 3. Mitral annulus calcification with trace mitral regurgitation. 4. Trace tricuspid regurgitation. MTDD
[2017-08-16 08:07] VITALS: BP 140/67
[2017-08-16] MEDS: SINEMET 25-100 MG TAB PO SCH ×3 (08:09→20:45)
[2017-08-16] MEDS: BUDESONIDE EC 3 MG CAP (ENTOCORT EC) PO SCH (08:09)
[2017-08-16] MEDS: ENOXAPARIN 40 MG/0.4 ML SYRINGE (J1650) SC SCH (08:09)
[2017-08-16] MEDS: CYANOCOBALAMIN 500 MCG TAB PO SCH (08:09)
[2017-08-16] MEDS: ASPIRIN 81 MG CHEW TABLET PO SCH (08:09)
[2017-08-16] MEDS: NS 1,000 ML IV SCH (11:27)
[2017-08-16 11:45] LABS: RETICULOCYTE % 1.2 % (0.5-1.5)
[2017-08-16 11:55] LABS: FERRITIN 143 NG/ML (26-388); PERCENT SATURATION 12.7 % (19.7-50.0); TOTAL IRON BINDING CAPACITY 189 UG/DL (250-450)
[2017-08-16 12:00] VITALS: BP 138/63
--- NOTE | 2017-08-16 13:03 | IPN ---
DATE: 08/16/2017 SUBJECTIVE: The patient tells me that he is feeling better. He denies any specific complaints. He denies chest pain, shortness of breath, fevers, chills, nausea, vomiting or diarrhea. OBJECTIVE: VITAL SIGNS: Maximum temperature (T max) 100.6, pulse 82, respiratory rate 19, blood pressure 140/67, oxygen saturation 95% on room air. GENERAL: He is a pleasant elderly man who is ambulating around his home with a walker. He does not appear to be in acute distress. HEENT: He has a mask-like face. Moist mucous membranes. Cranial nerves II-XII are grossly intact. He is awake, alert, oriented times three. CARDIOVASCULAR EXAM: S1, S2, regular. RESPIRATORY EXAM: Clear. ABDOMINAL EXAM: Benign. EXTREMITIES: No clubbing, cyanosis or edema. There is no resting tremor. LABORATORY STUDIES: WBC 9.8, hemoglobin 8.2, platelet count 24.8, platelet count 191. Chemistry panel: Sodium 141, potassium 3.8, chloride 109, bicarbonate 24, BUN 21, creatinine 0.7, AST down to 118, CK is down to 2460. No new microbiology or imaging. ASSESSMENT AND PLAN: This is an 81-year-old man who presented status post syncope, found to be rhabdomyolysis. Problems: 1. Syncope. He is currently undergoing treatment for community-acquired pneumonia. He does appear to be improving every day. He is actually more functional, more talkative today. Today is day #4 of 7. An echocardiogram was unrevealing for any etiology. He has Parkinson's, which may have predisposed him to falls. It is likely multifactorial with gait instability. Physical therapy (PT) continues to work with him and currently do not feel he is safe. I also suspect that he has some gait instability related to numerous CVAs, including those to the cerebellum. 2. Old CVAs with multiple infarcts. No evidence of atrial fibrillation, arrhythmia. An echocardiogram was unrevealing. Carotid duplex, MRI are also unrevealing. We have started him on a statin. He is already on an aspirin. He is working with physical therapy, and I suspect he would benefit from assisted living. Patient and family services (PFS) has been notified about his potential need for placement. 3. Rhabdomyolysis. Nephrology's help is greatly appreciated. CKs are down trending, as per nephrology's last note, he will be discontinued from normal saline at this time. He actually might benefit from diuresis given that he might be somewhat fluid overloaded. 4. Elevated AST related to rhabdomyolysis. 5. BPH. He is on Flomax. 6. Parkinson's disease. He is on Sinemet. 7. B12 deficiency. He is on supplementation. 8. Celiac disease. He is on a gluten-free diet. 9. Deep vein thrombosis (DVT) prophylaxis. He is on Lovenox. DISPOSITION: Pending PT. He is medically stable for transfer to the medical-surgical floor.
[2017-08-16 17:35] VITALS: BP 146/76
[2017-08-16 20:00] VITALS: BP 158/77
[2017-08-16] MEDS: ATORVASTATIN 20 MG TAB PO SCH (20:45)
[2017-08-16] MEDS: TAMSULOSIN 0.4 MG CAP PO SCH (20:45)
[2017-08-17] MEDS: LevoFLOXacin 500 MG TABLET PO SCH (05:44)
[2017-08-17 06:00] VITALS: BP 164/75
[2017-08-17 06:33] LABS: MEAN CORPUSCULAR HEMOGLOBIN 32.4 pg (27.0-33.0); MEAN CORPUSCULAR HGB CONC 34.4 g/dl (32.0-36.5); MEAN CORPUSCULAR VOLUME 94.2 fl (80.0-96.0); PLATELET COUNT, AUTOMATED 191 10^3/uL (150-450); RED CELL DISTRIBUTION WIDTH 12.9 % (11.5-14.5)
[2017-08-17 07:07] LABS: ALBUMIN 2.1 GM/DL (3.2-5.2); ALBUMIN/GLOBULIN RATIO 0.62 (1.00-1.93); ALKALINE PHOSPHATASE 45 U/L (45-117); ALT/SGPT 39 U/L (12-78); ANION GAP 7 MEQ/L (8-16); AST/SGOT 81 U/L (7-37); BILIRUBIN,TOTAL 0.2 MG/DL (0.2-1.0); BLOOD UREA NITROGEN 23 MG/DL (7-18); CALCIUM LEVEL 8.3 MG/DL (8.8-10.2); CARBON DIOXIDE LEVEL 26 MEQ/L (21-32); CHLORIDE LEVEL 109 MEQ/L (98-107); CREATININE FOR GFR 0.79 MG/DL (0.70-1.30); GLOMERULAR FILTRATION RATE > 60.0 (>35); GLUCOSE, FASTING 88 MG/DL (83-110); POTASSIUM SERUM 3.6 MEQ/L (3.5-5.1); SODIUM LEVEL 142 MEQ/L (136-145); TOTAL PROTEIN 5.5 GM/DL (6.4-8.2)
[2017-08-17] MEDS: ALBUTEROL SULFATE 2.5 MG/0.5 ML INH NEB SOLN NEB SCH ×4 (08:00→23:26)
[2017-08-17] MEDS ORDERED: POTASSIUM CHLORIDE 10 MEQ SR TABLET PO ONE (08:30)
[2017-08-17] MEDS: FERROUS SULFATE 325MG TAB PO SCH (08:56)
[2017-08-17] MEDS: CYANOCOBALAMIN 500 MCG TAB PO SCH (08:56)
[2017-08-17] MEDS: SINEMET 25-100 MG TAB PO SCH ×3 (08:56→20:37)
[2017-08-17] MEDS: BUDESONIDE EC 3 MG CAP (ENTOCORT EC) PO SCH (08:56)
[2017-08-17] MEDS: ASPIRIN 81 MG CHEW TABLET PO SCH (08:56)
[2017-08-17] MEDS: ENOXAPARIN 40 MG/0.4 ML SYRINGE (J1650) SC SCH (08:56)
[2017-08-17] MEDS ORDERED: FUROSEMIDE 40 MG TAB PO ONE (11:45)
--- NOTE | 2017-08-17 13:53 | IPN ---
DATE: 08/17/2017 SUBJECTIVE: The patient tells me that he is feeling better. He denies any complaints at this time. OBJECTIVE: VITAL SIGNS: Temperature 99.1, maximum temperature (T max) 99.4, pulse 79, respiratory rate 19, blood pressure 164/75, oxygen saturation 98% on room air. GENERAL: He is an elderly man lying in bed. He does not appear to be in any acute distress. HEENT: He has a mask-like face. Moist mucous membranes. Cranial nerves II-XII appear to be grossly intact. CARDIOVASCULAR EXAM: S1, S2, regular. RESPIRATORY EXAM: Clear. ABDOMINAL EXAM: Benign. EXTREMITIES: No clubbing or cyanosis. He does have some trace edema. LABORATORY STUDIES: WBC 8.0, hemoglobin 7.8, platelet count 191. Chemistry panel: Sodium 142, potassium 3.6, chloride 109, bicarbonate 26, BUN 23, creatinine 0.7, CK is 1249. His iron levels were low at 24, TIBC is low at189 and transferrin saturation low at 12.7. A GI PCR panel is negative. Respiratory PCR panel is negative. Urine culture and blood cultures are also negative. No new imaging. ASSESSMENT AND PLAN: This is an 81-year-old man who presented with syncope, found to be in rhabdomyolysis. Problems: 1. Syncope. Likely related to community-acquired pneumonia. Today is day #5 of 7 of treatment. An echocardiogram was unrevealing. He has Parkinson's, which may have predisposed him to fall as well as numerous CVAs including areas of the cerebellum which could also predispose him. He is currently working with physical therapy. He is not safe for dispositioning home where he was previously living alone [facility] 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 No evidence of atrial fibrillation. An echocardiogram was unrevealing. A carotid duplex and MRI were also unrevealing. We have started him on a statin, and he was continued on aspirin. He is working with physical therapy. I suspect he would benefit from potential placement to assisted living. 3. Rhabdomyolysis. Nephrology's help is appreciated. CK's are trending down. He will be discontinued from IV fluids. He is mildly overloaded. I will provide him with 40 of oral Lasix times one. 4. Elevated AST related to rhabdomyolysis, resolving. 5. BPH. He is on Flomax. 6. Parkinson's disease. He is on Sinemet. 7. B12 deficiency. He is on supplementation. 8. Celiac disease. He is on a gluten-free diet. 9. Anemia. Likely somewhat hemodilutional; however, iron studies are also suggestive of some iron deficiency. I will check an occult stool for blood. I do have concern for possible chronic slow bleed. He may benefit from outpatient colonoscopy. IDRIS
[2017-08-17 14:00] VITALS: BP 142/72
--- NOTE | 2017-08-17 15:21 | IPN ---
DATE: 08/16/2017 SUBJECTIVE: The patient is seen this morning at the bedside. He denies any specific complaints. States he is feeling well and is tolerating oral intake without any issues. VITAL SIGNS: Temperature 97.4, pulse 80, respiratory rate 20, blood pressure 138/63, saturating 95% on room air. INTAKE AND OUTPUT: Oral intake yesterday 960 mL. Urine output 650 mL. Positive 3.2 liters. Weight on the bed scale today 73.7 kg, increased from prior. GENERAL: The patient is seen lying in bed, comfortable, in no acute distress. He is slow to respond but answers questions appropriately. HEAD AND NECK: Extraocular muscles are intact. The oral mucosa is moist. CARDIAC: S1, S2, regular, 2+ radial pulse. LUNGS: Clear to auscultation bilaterally. ABDOMEN: Soft, obese, positive bowel sounds. EXTREMITIES: No cyanosis or clubbing. SKIN: Has no rash or ulcers. He moves his extremities on command. LABORATORY: White count 9.8, hemoglobin 8.7, platelets 191. Sodium 141, potassium 3.8, bicarbonate 24, BUN 21, creatinine 0.7, glucose 87, corrected calcium 9.3, iron 24, ferritin 143, T-sat 12%, CK 2460, AST down trending to 118. INPATIENT MEDICATIONS: I have discontinued the patient off of his IV fluids, and I have started him on iron supplementation. PROBLEMS: 1. Rhabdomyolysis. The patient's CK continues to down trend, now down to 2400. Given his significant positive fluid balance, I am discontinuing him off of IV fluids at this time. His renal function and electrolytes are acceptable. His AST also appropriately is down trending. 2. Anemia with inadequate iron stores with T-sat of 12% and iron of 24. I am starting the patient on an oral iron supplement. 3. Parkinson's disease. History of prior CVAs with infarcts and recent episode of syncope. The patient will potentially need placement. Thank you for involving us in the care of Mr. Concepcion. Nephrology is signing off the case at the present time. Please re-consult as needed. [facility] CENTERJones
[2017-08-17] MEDS: TAMSULOSIN 0.4 MG CAP PO SCH (20:37)
[2017-08-17] MEDS: ATORVASTATIN 20 MG TAB PO SCH (20:37)
[2017-08-17 21:02] VITALS: BP 130/59
[2017-08-18 05:00] VITALS: BP 146/82
[2017-08-18] MEDS: LevoFLOXacin 500 MG TABLET PO SCH (05:37)
[2017-08-18] MEDS: ALBUTEROL SULFATE 2.5 MG/0.5 ML INH NEB SOLN NEB SCH ×3 (08:00→19:54)
[2017-08-18 08:07] LABS: MEAN CORPUSCULAR HEMOGLOBIN 33.2 pg (27.0-33.0); MEAN CORPUSCULAR HGB CONC 35.1 g/dl (32.0-36.5); MEAN CORPUSCULAR VOLUME 94.6 fl (80.0-96.0); PLATELET COUNT, AUTOMATED 274 10^3/uL (150-450); WHITE BLOOD COUNT 6.6 10^3/uL (4.0-10.0)
[2017-08-18 08:28] LABS: ALBUMIN 2.7 GM/DL (3.2-5.2); ALBUMIN/GLOBULIN RATIO 0.75 (1.00-1.93); ALKALINE PHOSPHATASE 51 U/L (45-117); ALT/SGPT 39 U/L (12-78); ANION GAP 8 MEQ/L (8-16); AST/SGOT 78 U/L (7-37); BILIRUBIN,TOTAL 0.3 MG/DL (0.2-1.0); BLOOD UREA NITROGEN 25 MG/DL (7-18); CALCIUM LEVEL 8.8 MG/DL (8.8-10.2); CARBON DIOXIDE LEVEL 29 MEQ/L (21-32); CHLORIDE LEVEL 106 MEQ/L (98-107); CREATININE FOR GFR 0.98 MG/DL (0.70-1.30); GLOMERULAR FILTRATION RATE > 60.0 (>35); GLUCOSE, FASTING 90 MG/DL (83-110); SODIUM LEVEL 143 MEQ/L (136-145); TOTAL PROTEIN 6.3 GM/DL (6.4-8.2)
[2017-08-18] MEDS: BUDESONIDE EC 3 MG CAP (ENTOCORT EC) PO SCH (09:18)
[2017-08-18] MEDS: ASPIRIN 81 MG CHEW TABLET PO SCH (09:18)
[2017-08-18] MEDS: CYANOCOBALAMIN 500 MCG TAB PO SCH (09:18)
[2017-08-18] MEDS: SINEMET 25-100 MG TAB PO SCH ×3 (09:18→20:30)
[2017-08-18] MEDS: FERROUS SULFATE 325MG TAB PO SCH (09:18)
[2017-08-18 10:00] VITALS: BP 95/57
[2017-08-18 15:00] VITALS: BP 120/63
[2017-08-18] MEDS ORDERED: FUROSEMIDE 40 MG TAB PO ONE (17:15)
--- NOTE | 2017-08-18 17:25 | IPN ---
DATE: 08/18/2017 SUBJECTIVE: The patient tells me that he is feeling well. He has no complaints this morning. OBJECTIVE: VITAL SIGNS: Temperature 98.6, pulse 80, respiratory rate 16, blood pressure 120/63, oxygen saturation 96% on room air. GENERAL: He is an pleasant, elderly, man up and ambulating around his room. He does not appear to be in any acute distress. NEUROLOGIC: Cranial nerves II-XII appear grossly intact. HEENT: Mask-like face. Pupils are equally round and reactive to light. He has moist mucous membranes. CARDIOVASCULAR EXAMINATION: S1, S2, regular. RESPIRATORY EXAMINATION: Clear. ABDOMINAL EXAMINATION: Benign. EXTREMITIES: No clubbing, cyanosis, or edema. LABORATORY STUDIES: WBC 6.6, hemoglobin 9.2, platelet count 274. Chemistry panel: Sodium 143, potassium 4.0, chloride 106, bicarbonate 29, BUN 25, creatinine 0.9, CK 875. No new microbiology or imaging. ASSESSMENT AND PLAN: This is an 81-year-old man who presented with syncope, found to be in rhabdomyolysis. PROBLEMS: 1. Syncope, likely related to community-acquired pneumonia. Today is day six of seven of treatment. An echocardiogram was unrevealing. He has Parkinson's, which may have predisposed him to a fall as well as numerous cerebrovascular accidents (CVAs) in the past which were previously undiagnosed, including those involving the cerebellum. He is working with physical therapy and currently not safe for home where he lived alone previously. He has essentially no family support and [facility] I suspect he would benefit from at least assisted-living placement. 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 No evidence of atrial fibrillation. An echocardiogram was unrevealing. A carotid duplex and MRI/MRA were also unrevealing. We have started him on a statin and he is continued on an aspirin. He continues to work with physical therapy. 3. Rhabdomyolysis. Nephrology's help is appreciated. Creatine kinases (CKs) are trending down. He is no longer requiring IV fluids. He was mildly fluid overloaded. After receiving significant IV fluids, I did provide him with Lasix 40 mg yesterday. I will provide him with an additional one time dose today. 4. Parkinson's. He is on Sinemet. 5. Elevated aspartate aminotransferase (AST), related to rhabdomyolysis and resolving. 6. Benign prostatic hypertrophy (BPH). He is on Flomax. 7. B12 deficiency. He is on supplementation. 8. Celiac disease. He is on a gluten-free diet. 9. Anemia, asymptomatic and relatively mild. He did have an occult stool for blood that was positive. I would recommend outpatient colonoscopy through the [place] where he normally follows.
[2017-08-18] MEDS: ATORVASTATIN 20 MG TAB PO SCH (20:30)
[2017-08-18] MEDS: TAMSULOSIN 0.4 MG CAP PO SCH (20:30)
[2017-08-18] MEDS: ACETAMINOPHEN TAB 650MG DOSE (2X325MG) PO PRN (20:32)
[2017-08-18 21:00] VITALS: BP 133/63
[2017-08-19] MEDS: ALBUTEROL SULFATE 2.5 MG/0.5 ML INH NEB SOLN NEB SCH ×4 (01:57→19:22)
[2017-08-19 05:00] VITALS: BP 142/90
[2017-08-19] MEDS: LevoFLOXacin 500 MG TABLET PO SCH (05:39)
[2017-08-19 06:50] LABS: MEAN CORPUSCULAR HEMOGLOBIN 32.7 pg (27.0-33.0); MEAN CORPUSCULAR HGB CONC 34.4 g/dl (32.0-36.5); MEAN CORPUSCULAR VOLUME 95.2 fl (80.0-96.0); PLATELET COUNT, AUTOMATED 303 10^3/uL (150-450); WHITE BLOOD COUNT 5.9 10^3/uL (4.0-10.0)
[2017-08-19 07:10] LABS: ALBUMIN 2.5 GM/DL (3.2-5.2); ALBUMIN/GLOBULIN RATIO 0.64 (1.00-1.93); ALKALINE PHOSPHATASE 49 U/L (45-117); ALT/SGPT 38 U/L (12-78); ANION GAP 5 MEQ/L (8-16); AST/SGOT 53 U/L (7-37); BILIRUBIN,TOTAL 0.2 MG/DL (0.2-1.0); BLOOD UREA NITROGEN 27 MG/DL (7-18); CALCIUM LEVEL 9.1 MG/DL (8.8-10.2); CARBON DIOXIDE LEVEL 31 MEQ/L (21-32); CHLORIDE LEVEL 104 MEQ/L (98-107); CREATININE FOR GFR 0.98 MG/DL (0.70-1.30); GLOMERULAR FILTRATION RATE > 60.0 (>35); GLUCOSE, FASTING 89 MG/DL (83-110); POTASSIUM SERUM 3.8 MEQ/L (3.5-5.1); SODIUM LEVEL 140 MEQ/L (136-145); TOTAL PROTEIN 6.4 GM/DL (6.4-8.2)
[2017-08-19 08:00] VITALS: BP 97/54
[2017-08-19] MEDS: BUDESONIDE EC 3 MG CAP (ENTOCORT EC) PO SCH (09:11)
[2017-08-19] MEDS: SINEMET 25-100 MG TAB PO SCH ×3 (09:11→20:22)
[2017-08-19] MEDS: ASPIRIN 81 MG CHEW TABLET PO SCH (09:11)
[2017-08-19] MEDS: CYANOCOBALAMIN 500 MCG TAB PO SCH (09:11)
[2017-08-19] MEDS: FERROUS SULFATE 325MG TAB PO SCH (09:12)
[2017-08-19] MEDS: PANTOPRAZOLE 40MG TAB (PROTONIX) PO SCH ×2 (09:12→20:22)
--- NOTE | 2017-08-19 13:43 | IPNPDOC ---
Text Note Date of Service The patient was seen on 08/19/17. NOTE No acute events overnight. Reported note sleeping well. Denied Chest pain, sob, abd pain/n/v/diarrhea. patient poor historian Gen: NAD, follows command Neuro moves EXTx4, CN 2-12 intact HEENT:Mask-like face. Pupils are equally round and reactive to light. He has moist mucous membranes. Car: RRR s1s2 Pul b/l CTA abd soft nt nd +BS EXT no clubbing, cyanosis or edema ASSESSMENT AND PLAN: This is an 81-year-old man underlying Depression, constipation, DPH, Dementia, Anemia, Celiac disease, GERD, DLD, osteoathritis, PCD, Parkinson who presented with syncope, found to be in rhabdomyolysis. PROBLEMS: 1. Syncope, likely related to community-acquired pneumonia. Today is day seven of seven of treatment. An echocardiogram was unrevealing. He has Parkinson's, which may have predisposed him to a fall as well as numerous cerebrovascular accidents (CVAs) in the past which were previously undiagnosed, including those involving the cerebellum. He is working with physical therapy and currently not safe for home where he lived alone previously. He has essentially no family support [facility] I suspect he would benefit from at least assisted-living placement vs SNF 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 No evidence of atrial fibrillation. An echocardiogram was unrevealing. A carotid duplex and MRI/MRA were also unrevealing. We have started him on a statin and he is continued on an aspirin. He continues to work with physical therapy. 3. Rhabdomyolysis. Nephrology's help is appreciated. Creatine kinases (CKs) are trending down. He is no longer requiring IV fluids. He was mildly fluid overloaded. lasix given. Strict I and O. con't monitor 4. Parkinson's. He is on Sinemet. 5. Elevated aspartate aminotransferase (AST), related to rhabdomyolysis and resolving. 6. Benign prostatic hypertrophy (BPH). He is on Flomax. 7. B12 deficiency. He is on supplementation. 8. Celiac disease. He is on a gluten-free diet. 9. Anemia, asymptomatic and relatively mild. He did have an occult stool for blood that was positive. HH stable. Will monitor. Likely would need outpatient GI workup, EGD colonoscopy. if patient's H/H decrease would pursuit workup inpatient, protonix BID DVT ppx, SCD, avoid AC given FOBT +. encourage ambulation Dispo pending PT and social work for placement, [place] vs SNF VS,Ric, I+O VS, Ric, I+O Laboratory Tests 08/19/17 06:36 Red Blood Count 2.72 L, Mean Corpuscular Volume 95.2, Mean Corpuscular Hemoglobin 32.7, Mean Corpuscular Hemoglobin Concent 34.4, Red Cell Distribution Width 13.0, Calcium Level 9.1, Aspartate Amino Transf (AST/SGOT) 53 H, Alanine Aminotransferase (ALT/SGPT) 38, Alkaline Phosphatase 49, Total Bilirubin 0.2, Total Protein 6.4, Albumin 2.5 L Vital Signs Date Time Temp Pulse Resp B/P (MAP) Pulse Ox O2 Delivery O2 Flow Rate FiO2 08/19/17 08:00 98.4 91 16 97/54 (68) 94 Room Air SAPNA LEBRON MD Aug 19, 2017 13:43
[2017-08-19 16:00] VITALS: BP 119/62
[2017-08-19] MEDS: ATORVASTATIN 20 MG TAB PO SCH (20:22)
[2017-08-19] MEDS: TAMSULOSIN 0.4 MG CAP PO SCH (20:22)
[2017-08-19 23:08] VITALS: BP 100/55
[2017-08-20] MEDS: ALBUTEROL SULFATE 2.5 MG/0.5 ML INH NEB SOLN NEB SCH ×4 (02:00→21:16)
[2017-08-20] MEDS: LevoFLOXacin 500 MG TABLET PO SCH (05:27)
[2017-08-20 05:31] VITALS: BP 129/60
[2017-08-20 07:29] LABS: ALBUMIN 2.5 GM/DL (3.2-5.2); ALBUMIN/GLOBULIN RATIO 0.68 (1.00-1.93); ALKALINE PHOSPHATASE 50 U/L (45-117); ALT/SGPT 33 U/L (12-78); ANION GAP 5 MEQ/L (8-16); AST/SGOT 44 U/L (7-37); BILIRUBIN,TOTAL 0.2 MG/DL (0.2-1.0); BLOOD UREA NITROGEN 25 MG/DL (7-18); CALCIUM LEVEL 8.7 MG/DL (8.8-10.2); CARBON DIOXIDE LEVEL 32 MEQ/L (21-32); CHLORIDE LEVEL 105 MEQ/L (98-107); CREATININE FOR GFR 1.13 MG/DL (0.70-1.30); GLOMERULAR FILTRATION RATE > 60.0 (>35); GLUCOSE, FASTING 88 MG/DL (83-110); POTASSIUM SERUM 4.3 MEQ/L (3.5-5.1); SODIUM LEVEL 142 MEQ/L (136-145); TOTAL PROTEIN 6.2 GM/DL (6.4-8.2)
[2017-08-20 07:33] LABS: MEAN CORPUSCULAR HEMOGLOBIN 32.8 pg (27.0-33.0); MEAN CORPUSCULAR HGB CONC 33.9 g/dl (32.0-36.5); MEAN CORPUSCULAR VOLUME 96.8 fl (80.0-96.0); PLATELET COUNT, AUTOMATED 322 10^3/uL (150-450); RED CELL DISTRIBUTION WIDTH 13.2 % (11.5-14.5); WHITE BLOOD COUNT 7.8 10^3/uL (4.0-10.0)
[2017-08-20] MEDS: SINEMET 25-100 MG TAB PO SCH ×3 (08:24→21:02)
[2017-08-20] MEDS: CYANOCOBALAMIN 500 MCG TAB PO SCH (08:25)
[2017-08-20] MEDS: BUDESONIDE EC 3 MG CAP (ENTOCORT EC) PO SCH (08:25)
[2017-08-20] MEDS: ASPIRIN 81 MG CHEW TABLET PO SCH (08:25)
[2017-08-20] MEDS: FERROUS SULFATE 325MG TAB PO SCH (08:25)
[2017-08-20] MEDS: PANTOPRAZOLE 40MG TAB (PROTONIX) PO SCH ×2 (08:25→21:03)
[2017-08-20 14:00] VITALS: BP 100/52
[2017-08-20] MEDS ORDERED: MAGNESIUM CITRATE 300 ML BTL PO ONE (15:30)
--- NOTE | 2017-08-20 17:23 | IPNPDOC ---
Text Note Date of Service The patient was seen on 08/20/17. NOTE No acute events overnight. Reported note sleeping well. Denied Chest pain, sob, abd pain/n/v/diarrhea. patient poor historian Gen: NAD, follows command Neuro moves EXTx4, CN 2-12 intact HEENT:Mask-like face. Pupils are equally round and reactive to light. He has moist mucous membranes. Car: RRR s1s2 Pul b/l CTA abd soft nt nd +BS EXT no clubbing, cyanosis or edema ASSESSMENT AND PLAN: This is an 81-year-old man underlying Depression, constipation, DPH, Dementia, Anemia, Celiac disease, GERD, DLD, osteoathritis, PCD, Parkinson who presented with syncope, found to be in rhabdomyolysis. PROBLEMS: 1. Syncope, likely related to community-acquired pneumonia. Today is day seven of seven of treatment. An echocardiogram was unrevealing. He has Parkinson's, which may have predisposed him to a fall as well as numerous cerebrovascular accidents (CVAs) in the past which were previously undiagnosed, including those involving the cerebellum. He is working with physical therapy and currently not safe for home where he lived alone previously. He has essentially no family support and [facility] I suspect he would benefit from at least assisted-living placement vs SNF 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 No evidence of atrial fibrillation. An echocardiogram was unrevealing. A carotid duplex and MRI/MRA were also unrevealing. We have started him on a statin and he is continued on an aspirin. He continues to work with physical therapy. 3. Rhabdomyolysis. Nephrology's help is appreciated. Creatine kinases (CKs) are trending down. He is no longer requiring IV fluids. He was mildly fluid overloaded. lasix given. Strict I and O. con't monitor 4. Parkinson's. He is on Sinemet. 5. Elevated aspartate aminotransferase (AST), related to rhabdomyolysis and resolving. 6. Benign prostatic hypertrophy (BPH). He is on Flomax. 7. B12 deficiency. He is on supplementation. 8. Celiac disease. He is on a gluten-free diet. 9. Anemia, asymptomatic . He did have an occult stool for blood that was positive. HH decreased. for concerns of lost to followup if patient is discharged, GI consulted, protonix BID DVT ppx, SCD, avoid AC given FOBT +. encourage ambulation Dispo pending PT and social work for placement, [place] vs SNF VS,Fishbone, I+O VS, Fishbone, I+O Laboratory Tests 08/20/17 06:39 Red Blood Count 2.53 L, Mean Corpuscular Volume 96.8 H, Mean Corpuscular Hemoglobin 32.8, Mean Corpuscular Hemoglobin Concent 33.9, Red Cell Distribution Width 13.2, Calcium Level 8.7 L, Aspartate Amino Transf (AST/SGOT) 44 H, Alanine Aminotransferase (ALT/SGPT) 33, Alkaline Phosphatase 50, Total Bilirubin 0.2, Total Protein 6.2 L, Albumin 2.5 L Vital Signs Date Time Temp Pulse Resp B/P (MAP) Pulse Ox O2 Delivery O2 Flow Rate FiO2 08/20/17 14:00 98.8 82 19 100/52 (68) 100 Room Air I&O- Last 24 Hours up to 6 AM 08/21/17 06:00 Intake Total 720 ml Output Total 1050 ml Balance -330 ml SAPNA LEBRON MD Aug 20, 2017 17:23
[2017-08-20] MEDS ORDERED: GOLYTELY SOLN 4000 ML BTL PO ONE (18:00)
[2017-08-20] MEDS: TAMSULOSIN 0.4 MG CAP PO SCH (21:02)
[2017-08-20] MEDS: ATORVASTATIN 20 MG TAB PO SCH (21:02)
[2017-08-20 22:30] VITALS: BP 115/62
[2017-08-21] MEDS: ALBUTEROL SULFATE 2.5 MG/0.5 ML INH NEB SOLN NEB SCH ×4 (01:37→19:29)
[2017-08-21] MEDS ORDERED: GOLYTELY SOLN 4000 ML BTL PO ONE (05:00)
[2017-08-21] MEDS: LevoFLOXacin 500 MG TABLET PO SCH (05:24)
[2017-08-21 05:56] VITALS: BP 128/66
[2017-08-21 08:02] LABS: MEAN CORPUSCULAR HEMOGLOBIN 32.8 pg (27.0-33.0); MEAN CORPUSCULAR HGB CONC 33.2 g/dl (32.0-36.5); MEAN CORPUSCULAR VOLUME 98.9 fl (80.0-96.0); PLATELET COUNT, AUTOMATED 360 10^3/uL (150-450); RED CELL DISTRIBUTION WIDTH 13.3 % (11.5-14.5); WHITE BLOOD COUNT 5.5 10^3/uL (4.0-10.0)
[2017-08-21] MEDS: PANTOPRAZOLE 40MG TAB (PROTONIX) PO SCH ×2 (08:29→20:51)
[2017-08-21] MEDS: BUDESONIDE EC 3 MG CAP (ENTOCORT EC) PO SCH (08:29)
[2017-08-21] MEDS: SINEMET 25-100 MG TAB PO SCH ×3 (08:29→20:51)
[2017-08-21] MEDS: CYANOCOBALAMIN 500 MCG TAB PO SCH (08:29)
[2017-08-21] MEDS: ASPIRIN 81 MG CHEW TABLET PO SCH (08:29)
[2017-08-21 08:32] LABS: ANION GAP 9 MEQ/L (8-16); BLOOD UREA NITROGEN 20 MG/DL (7-18); CALCIUM LEVEL 8.5 MG/DL (8.8-10.2); CARBON DIOXIDE LEVEL 33 MEQ/L (21-32); CHLORIDE LEVEL 105 MEQ/L (98-107); CREATININE FOR GFR 1.14 MG/DL (0.70-1.30); GLOMERULAR FILTRATION RATE > 60.0 (>35); GLUCOSE, FASTING 86 MG/DL (83-110); MAGNESIUM LEVEL 2.4 MG/DL (1.8-2.4); SODIUM LEVEL 147 MEQ/L (136-145)
[2017-08-21] MEDS ORDERED: fentaNYL 100 MCG/2 ML INJECTION (J3010) As Ordered ONE (12:01)
[2017-08-21] MEDS ORDERED: MIDAZOLAM INJ 2 MG/2 ML VIAL (J2250) As Ordered ONE ×2 (12:01→12:41)
--- NOTE | 2017-08-21 12:54 | ROOR ---
Patient Name: Diaz Concepcion Procedure Date: 08/21/2017 12:06 PM Date of : 1935 Age: 81 Room: [facility] Gender: Male Note Status: Finalized Procedure: Upper GI endoscopy Indications: Iron deficiency anemia, Suspected celiac disease Providers: Dimitrios ROJAS MD Referring MD: Robert Babcock, 2. Inpatient 2. Inpatient Requesting Provider: Medicines: Monitored Anesthesia Care Complications: No immediate complications. Procedure: Pre-Anesthesia Assessment: - The heart rate, respiratory rate, oxygen saturations, blood pressure, adequacy of pulmonary ventilation, and response to care were monitored throughout the procedure. The Endoscope was introduced through the mouth, and advanced to the third part of duodenum. The upper GI endoscopy was accomplished without difficulty. The patient tolerated the procedure well. Findings: Non-severe esophagitis was found at the gastroesophageal junction. Biopsies were taken with a cold forceps for histology. Diffuse moderate inflammation characterized by erosions was found in the entire examined stomach. Biopsies were taken with a cold forceps for histology. A large hiatal hernia was present. The examined duodenum was normal. Biopsies for histology were taken with a cold forceps for evaluation of celiac disease. Impression: - Mild esophagitis. Biopsied. - Mucosal changes suspicious for atrophic gastritis. Biopsied. - Moderate to large hiatal hernia. - Normal examined duodenum. Biopsied. Recommendation: - Telephone endoscopist for pathology results in 2 weeks. Dimitrios Rojas MD Dimitrios ROJAS MD 08/21/2017 12:54:20 PM This report has been signed electronically. Number of Addenda: 0 Note Initiated On: 08/21/2017 12:06 PM Estimated Blood Loss: Estimated blood loss: none.
--- NOTE | 2017-08-21 13:13 | ROOR ---
Patient Name: Diaz Concepcion Procedure Date: 08/21/2017 12:01 PM Date of : 1935 Age: 81 Room: [facility] Gender: Male Note Status: Finalized Procedure: Colonoscopy Indications: Heme positive stool, Constipation Providers: Dimitrios ROJAS MD Referring MD: Robert Babcock, 2. Inpatient 2. Inpatient Requesting Provider: Medicines: Fentanyl 37.5 micrograms IV, Midazolam 5 mg IV Complications: No immediate complications. Procedure: Pre-Anesthesia Assessment: - The heart rate, respiratory rate, oxygen saturations, blood pressure, adequacy of pulmonary ventilation, and response to care were monitored throughout the procedure. The Colonoscope was introduced through the anus and advanced to 5 cm into the ileum. The colonoscopy was performed without difficulty. The patient tolerated the procedure well. The quality of the bowel preparation was good. Findings: The perianal and digital rectal examinations were normal. Multiple medium-mouthed diverticula were found in the sigmoid colon. Internal hemorrhoids were found during retroflexion. The hemorrhoids were medium-sized. The entire examined colon appeared normal on direct and retroflexion views. The terminal ileum appeared normal. Impression: - Moderate diverticulosis in the sigmoid colon. - Internal hemorrhoids. - The entire colon is otherwise normal on direct and retroflexion views. - The examined portion of the ileum was normal. - No specimens collected. Recommendation: - Telephone referring physician. Dimitrios Rojas MD Dimitrios ROJAS MD 08/21/2017 1:13:02 PM This report has been signed electronically. Number of Addenda: 0 Note Initiated On: 08/21/2017 12:01 PM Estimated Blood Loss: Estimated blood loss: none.
[2017-08-21] MEDS ORDERED: MIDAZOLAM INJ 2 MG/2 ML VIAL (J2250) IV ONE ×4 (13:31→13:33)
[2017-08-21] MEDS ORDERED: fentaNYL 100 MCG/2 ML INJECTION (J3010) IV ONE ×2 (13:32→13:34)
[2017-08-21 13:55] VITALS: BP 110/57
[2017-08-21 14:50] VITALS: BP 128/62
--- NOTE | 2017-08-21 17:39 | IPNPDOC ---
Text Note Date of Service The patient was seen on 08/21/17. NOTE No acute events overnight. Denied Chest pain, sob, abd pain/n/v/diarrhea. patient poor historian Gen: NAD, follows command Neuro moves EXTx4, CN 2-12 intact HEENT:Mask-like face. Pupils are equally round and reactive to light. He has moist mucous membranes. Car: RRR s1s2 Pul b/l CTA abd soft nt nd +BS EXT no clubbing, cyanosis or edema ASSESSMENT AND PLAN: This is an 81-year-old man underlying Depression, constipation, DPH, Dementia, Anemia, Celiac disease, GERD, DLD, osteoathritis, PCD, Parkinson who presented with syncope, found to be in rhabdomyolysis. PROBLEMS: 1. Syncope, likely related to community-acquired pneumonia. Today is day seven of seven of treatment. An echocardiogram was unrevealing. He has Parkinson's, which may have predisposed him to a fall as well as numerous cerebrovascular accidents (CVAs) in the past which were previously undiagnosed, including those involving the cerebellum. He is working with physical therapy and currently not safe for home where he lived alone previously. He has essentially no family support and [facility] with [facility] vs [place], vs SNF 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 No evidence of atrial fibrillation. An echocardiogram was unrevealing. A carotid duplex and MRI/MRA were also unrevealing. We have started him on a statin and he is continued on an aspirin. He continues to work with physical therapy. 3. Rhabdomyolysis. Nephrology's help is appreciated. Creatine kinases (CKs) are trending down. He is no longer requiring IV fluids. He was mildly fluid overloaded. lasix given. Strict I and O. con't monitor 4. Parkinson's. He is on Sinemet. 5. Elevated aspartate aminotransferase (AST), related to rhabdomyolysis and resolving. 6. Benign prostatic hypertrophy (BPH). He is on Flomax. 7. B12 deficiency. He is on supplementation. 8. Celiac disease. He is on a gluten-free diet. 9. Anemia, asymptomatic . He did have an occult stool for blood that was positive. HH decreased. for concerns of lost to followup if patient is discharged, GI consulted, protonix BID, EGD and colonoscopy done, f/ u pathology DVT ppx, SCD, avoid AC given FOBT +. encourage ambulation Dispo pending PT and social work for placement, AL vs SNFvs home with services VS,Ric, I+O VS, Ric I+O Laboratory Tests 08/21/17 07:42 Red Blood Count 2.68 L, Mean Corpuscular Volume 98.9 H, Mean Corpuscular Hemoglobin 32.8, Mean Corpuscular Hemoglobin Concent 33.2, Red Cell Distribution Width 13.3, Calcium Level 8.5 L Vital Signs Date Time Temp Pulse Resp B/P (MAP) Pulse Ox O2 Delivery O2 Flow Rate FiO2 08/21/17 14:50 98.5 79 20 128/62 (84) 96 Room Air I&O- Last 24 Hours up to 6 AM 08/22/17 06:00 Output Total 350 ml Balance -350 ml SAPNA LEBRON MD Aug 21, 2017 17:39
[2017-08-21] MEDS: ATORVASTATIN 20 MG TAB PO SCH (20:51)
[2017-08-21] MEDS: TAMSULOSIN 0.4 MG CAP PO SCH (20:51)
[2017-08-21 22:00] VITALS: BP 97/55
[2017-08-22 00:09] VITALS: BP 126/64
[2017-08-22] MEDS: ALBUTEROL SULFATE 2.5 MG/0.5 ML INH NEB SOLN NEB SCH ×4 (02:00→20:33)
[2017-08-22] MEDS: LevoFLOXacin 500 MG TABLET PO SCH (05:37)
[2017-08-22 05:38] VITALS: BP 112/64
[2017-08-22 07:00] LABS: MEAN CORPUSCULAR HEMOGLOBIN 33.2 pg (27.0-33.0); MEAN CORPUSCULAR HGB CONC 33.5 g/dl (32.0-36.5); MEAN CORPUSCULAR VOLUME 99.2 fl (80.0-96.0); PLATELET COUNT, AUTOMATED 329 10^3/uL (150-450); RED CELL DISTRIBUTION WIDTH 13.6 % (11.5-14.5); WHITE BLOOD COUNT 6.7 10^3/uL (4.0-10.0)
[2017-08-22 07:23] LABS: ANION GAP 5 MEQ/L (8-16); BLOOD UREA NITROGEN 18 MG/DL (7-18); CALCIUM LEVEL 8.4 MG/DL (8.8-10.2); CARBON DIOXIDE LEVEL 31 MEQ/L (21-32); CHLORIDE LEVEL 108 MEQ/L (98-107); CREATININE FOR GFR 1.09 MG/DL (0.70-1.30); GLOMERULAR FILTRATION RATE > 60.0 (>35); GLUCOSE, FASTING 91 MG/DL (83-110); MAGNESIUM LEVEL 2.3 MG/DL (1.8-2.4); POTASSIUM SERUM 3.8 MEQ/L (3.5-5.1); SODIUM LEVEL 144 MEQ/L (136-145)
[2017-08-22] MEDS: CYANOCOBALAMIN 500 MCG TAB PO SCH (09:07)
[2017-08-22] MEDS: SINEMET 25-100 MG TAB PO SCH ×3 (09:07→22:05)
[2017-08-22] MEDS: PANTOPRAZOLE 40MG TAB (PROTONIX) PO SCH ×2 (09:07→22:05)
[2017-08-22] MEDS: ASPIRIN 81 MG CHEW TABLET PO SCH (09:07)
[2017-08-22] MEDS: BUDESONIDE EC 3 MG CAP (ENTOCORT EC) PO SCH (09:08)
[2017-08-22] MEDS: ACETAMINOPHEN TAB 650MG DOSE (2X325MG) PO PRN (09:18)
[2017-08-22] MEDS ORDERED: PANT40TA2 PO (12:47)
[2017-08-22] MEDS ORDERED: ATOR1TAB21 PO (12:47)
[2017-08-22 14:00] VITALS: BP 151/77
[2017-08-22] MEDS: SODIUM CHLORIDE NASAL 0.65% SPRAY BTL (OCEAN) SCH ×2 (16:06→22:05)
--- NOTE | 2017-08-22 16:53 | IPNPDOC ---
Text Note Date of Service The patient was seen on 08/22/17. NOTE No acute events overnight. Denied Chest pain, sob, abd pain/n/v/diarrhea. patient poor historian Gen: NAD, follows command Neuro moves EXTx4, CN 2-12 intact HEENT:Mask-like face. Pupils are equally round and reactive to light. He has moist mucous membranes. Car: RRR s1s2 Pul b/l CTA abd soft nt nd +BS EXT no clubbing, cyanosis or edema ASSESSMENT AND PLAN: This is an 81-year-old man underlying Depression, constipation, DPH, Dementia, Anemia, Celiac disease, GERD, DLD, osteoathritis, PCD, Parkinson who presented with syncope, found to be in rhabdomyolysis. PROBLEMS: 1. Syncope, likely related to community-acquired pneumonia. Today is day seven of seven of treatment. An echocardiogram was unrevealing. He has Parkinson's, which may have predisposed him to a fall as well as numerous cerebrovascular accidents (CVAs) in the past which were previously undiagnosed, including those involving the cerebellum. He is working with physical therapy and currently not safe for home where he lived alone previously. He has essentially no family support and [facility] with [facility] vs [place], vs SNF 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 No evidence of atrial fibrillation. echocardiogram was unrevealing. A carotid duplex and MRI/MRA were also unrevealing. We have started him on a statin and he is continued on an aspirin. He continues to work with physical therapy. 3. Rhabdomyolysis. Nephrology's help is appreciated. Creatine kinases (CKs) are trending down. He is no longer requiring IV fluids. He was mildly fluid overloaded. lasix given. Strict I and O. con't monitor 4. Parkinson's. He is on Sinemet. 5. Elevated aspartate aminotransferase (AST), related to rhabdomyolysis and resolving. 6. Benign prostatic hypertrophy (BPH). He is on Flomax. 7. B12 deficiency. He is on supplementation. 8. Celiac disease. He is on a gluten-free diet. 9. Anemia, asymptomatic . He did have an occult stool for blood that was positive. HH decreased. for concerns of lost to followup if patient is discharged, GI consulted, protonix BID, EGD and colonoscopy done, likely gastritis DVT ppx, SCD, avoid AC given FOBT +. encourage ambulation Dispo pending PT and social work for placement, [place] vs SNFvs home with services VS,Ric, I+O VS, Ric I+O Laboratory Tests 08/22/17 06:55 Red Blood Count 2.50 L, Mean Corpuscular Volume 99.2 H, Mean Corpuscular Hemoglobin 33.2 H, Mean Corpuscular Hemoglobin Concent 33.5, Red Cell Distribution Width 13.6, Calcium Level 8.4 L Vital Signs Date Time Temp Pulse Resp B/P (MAP) Pulse Ox O2 Delivery O2 Flow Rate FiO2 08/22/17 14:39 100.2 72 16 112/64 92 Room Air I&O- Last 24 Hours up to 6 AM 08/23/17 06:00 Intake Total 880 ml Output Total 250 ml Balance 630 ml SAPNA LEBRON MD Aug 22, 2017 16:53
[2017-08-22 20:00] VITALS: BP 152/77
[2017-08-22] MEDS: ATORVASTATIN 20 MG TAB PO SCH (22:05)
[2017-08-22] MEDS: TAMSULOSIN 0.4 MG CAP PO SCH (22:05)
[2017-08-23] MEDS: ALBUTEROL SULFATE 2.5 MG/0.5 ML INH NEB SOLN NEB SCH ×2 (01:28→20:00)
[2017-08-23 06:00] VITALS: BP_SYST 152; BP_DIAS 7; BP_DIAS 77
[2017-08-23] MEDS: LevoFLOXacin 500 MG TABLET PO SCH (06:08)
[2017-08-23 06:25] LABS: MEAN CORPUSCULAR HEMOGLOBIN 33.2 pg (27.0-33.0); MEAN CORPUSCULAR HGB CONC 33.3 g/dl (32.0-36.5); MEAN CORPUSCULAR VOLUME 99.5 fl (80.0-96.0); PLATELET COUNT, AUTOMATED 306 10^3/uL (150-450); RED CELL DISTRIBUTION WIDTH 13.5 % (11.5-14.5); WHITE BLOOD COUNT 5.2 10^3/uL (4.0-10.0)
[2017-08-23 06:44] LABS: ANION GAP 8 MEQ/L (8-16); BLOOD UREA NITROGEN 17 MG/DL (7-18); CALCIUM LEVEL 8.1 MG/DL (8.8-10.2); CARBON DIOXIDE LEVEL 28 MEQ/L (21-32); CHLORIDE LEVEL 107 MEQ/L (98-107); CREATININE FOR GFR 1.03 MG/DL (0.70-1.30); GLOMERULAR FILTRATION RATE > 60.0 (>35); GLUCOSE, FASTING 91 MG/DL (83-110); POTASSIUM SERUM 3.6 MEQ/L (3.5-5.1); SODIUM LEVEL 143 MEQ/L (136-145)
[2017-08-23] MEDS: ASPIRIN 81 MG CHEW TABLET PO SCH (08:06)
[2017-08-23] MEDS: PANTOPRAZOLE 40MG TAB (PROTONIX) PO SCH ×2 (08:06→21:44)
[2017-08-23] MEDS: SINEMET 25-100 MG TAB PO SCH ×3 (08:06→21:44)
[2017-08-23] MEDS: CYANOCOBALAMIN 500 MCG TAB PO SCH (08:06)
[2017-08-23] MEDS: SODIUM CHLORIDE NASAL 0.65% SPRAY BTL (OCEAN) SCH ×3 (08:07→21:44)
[2017-08-23] MEDS ORDERED: POTASSIUM CHLORIDE 10 MEQ SR TABLET PO ONE (10:00)
[2017-08-23] MEDS: BUDESONIDE EC 3 MG CAP (ENTOCORT EC) PO SCH (10:12)
[2017-08-23 14:00] VITALS: BP 128/59
--- NOTE | 2017-08-23 18:12 | IPNPDOC ---
Text Note Date of Service The patient was seen on 08/23/17. NOTE No acute events overnight. Denied Chest pain, sob, abd pain/n/v/diarrhea. patient poor historian Gen: NAD, follows command Neuro moves EXTx4, CN 2-12 intact HEENT:Mask-like face. Pupils are equally round and reactive to light. He has moist mucous membranes. Car: RRR s1s2 Pul b/l CTA abd soft nt nd +BS EXT no clubbing, cyanosis or edema ASSESSMENT AND PLAN: This is an 81-year-old man underlying Depression, constipation, DPH, Dementia, Anemia, Celiac disease, GERD, DLD, osteoathritis, PCD, Parkinson who presented with syncope, found to be in rhabdomyolysis. PROBLEMS: 1. Syncope, likely related to community-acquired pneumonia.completed levaquin An echocardiogram was unrevealing. He has Parkinson's, which may have predisposed him to a fall as well as numerous cerebrovascular accidents (CVAs) in the past which were previously undiagnosed, including those involving the cerebellum. He is working with physical therapy and currently not safe for home where he lived alone previously. He has essentially no family support and [facility] with [facility] vs AL, vs SNF 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 No evidence of atrial fibrillation. echocardiogram was unrevealing. A carotid duplex and MRI/MRA were also unrevealing. We have started him on a statin and he is continued on an aspirin. He continues to work with physical therapy. 3. Rhabdomyolysis. Nephrology's help is appreciated. Creatine kinases (CKs) are trending down. He is no longer requiring IV fluids. He was mildly fluid overloaded. lasix given. Strict I and O. con't monitor 4. Parkinson's. He is on Sinemet. 5. Elevated aspartate aminotransferase (AST), related to rhabdomyolysis and resolving. 6. Benign prostatic hypertrophy (BPH). He is on Flomax. 7. B12 deficiency. He is on supplementation. 8. Celiac disease. He is on a gluten-free diet. 9. Anemia, asymptomatic . transfused 1 U PRBC, He did have an occult stool for blood that was positive. HH decreased. for concerns of lost to followup if patient is discharged, GI consulted, protonix BID, EGD and colonoscopy done, likely gastritis DVT ppx, SCD, avoid AC given FOBT +. encourage ambulation Dispo pending PT and social work for placement, [place] vs SNFvs home with services VS,Ric, I+O VS, Ric I+O Laboratory Tests 08/23/17 06:03 Red Blood Count 2.20 L, Mean Corpuscular Volume 99.5 H, Mean Corpuscular Hemoglobin 33.2 H, Mean Corpuscular Hemoglobin Concent 33.3, Red Cell Distribution Width 13.5, Calcium Level 8.1 L Vital Signs Date Time Temp Pulse Resp B/P (MAP) Pulse Ox O2 Delivery O2 Flow Rate FiO2 08/23/17 06:00 98.4 82 18 152/77 (102) 96 08/22/17 20:00 Room Air I&O- Last 24 Hours up to 6 AM 08/24/17 06:00 Intake Total 360 ml Output Total 425 ml Balance -65 ml SAPNA LEBRON MD Aug 23, 2017 18:12
[2017-08-23] MEDS: ATORVASTATIN 20 MG TAB PO SCH (21:44)
[2017-08-23] MEDS: TAMSULOSIN 0.4 MG CAP PO SCH (21:44)
[2017-08-23 22:00] VITALS: BP 135/67
[2017-08-24] MEDS: ALBUTEROL SULFATE 2.5 MG/0.5 ML INH NEB SOLN NEB SCH ×5 (02:00→21:01)
[2017-08-24 06:00] VITALS: BP 145/71
[2017-08-24 06:32] LABS: MEAN CORPUSCULAR HEMOGLOBIN 32.6 pg (27.0-33.0); MEAN CORPUSCULAR VOLUME 95.6 fl (80.0-96.0); PLATELET COUNT, AUTOMATED 363 10^3/uL (150-450); RED CELL DISTRIBUTION WIDTH 14.9 % (11.5-14.5); RETIC HEMOGLOBIN EQUIVALENT 36.2 pg (24-36); RETICULOCYTE % 2.5 % (0.5-1.5); WHITE BLOOD COUNT 7.1 10^3/uL (4.0-10.0)
[2017-08-24 06:55] LABS: ANION GAP 7 MEQ/L (8-16); BLOOD UREA NITROGEN 22 MG/DL (7-18); CALCIUM LEVEL 8.5 MG/DL (8.8-10.2); CARBON DIOXIDE LEVEL 28 MEQ/L (21-32); CHLORIDE LEVEL 106 MEQ/L (98-107); CREATININE FOR GFR 1.17 MG/DL (0.70-1.30); FERRITIN 126 NG/ML (26-388); GLOMERULAR FILTRATION RATE > 60.0 (>35); GLUCOSE, FASTING 85 MG/DL (83-110); PERCENT SATURATION 62.1 % (19.7-50.0); SODIUM LEVEL 141 MEQ/L (136-145); TOTAL IRON BINDING CAPACITY 272 UG/DL (250-450)
--- NOTE | 2017-08-24 09:08 | REP ---
REASON FOR EXAM: Pain involving the first digit bilaterally. Four views of the foot bilateral show degenerative changes throughout each foot particularly affecting the interphalangeal joint of the first digit left foot. That joint space is irregular and there is heavy marginal osteophyte formation. There is no evidence of an acute fracture. IMPRESSION: Advanced chronic changes as described above. Signed by Ziggy Aguiar DO 08/24/2017 09:32 A
[2017-08-24] MEDS: ASPIRIN 81 MG CHEW TABLET PO SCH (09:14)
[2017-08-24] MEDS: SINEMET 25-100 MG TAB PO SCH ×3 (09:14→20:08)
[2017-08-24] MEDS: PANTOPRAZOLE 40MG TAB (PROTONIX) PO SCH ×2 (09:14→20:08)
[2017-08-24] MEDS: CYANOCOBALAMIN 500 MCG TAB PO SCH (09:15)
[2017-08-24] MEDS: SODIUM CHLORIDE NASAL 0.65% SPRAY BTL (OCEAN) SCH ×3 (09:15→20:09)
[2017-08-24] MEDS: BUDESONIDE EC 3 MG CAP (ENTOCORT EC) PO SCH (09:15)
--- NOTE | 2017-08-24 10:33 | IPNPDOC ---
Text Note Date of Service The patient was seen on 08/24/17. NOTE No acute events overnight. Denied Chest pain, sob, abd pain/n/v/diarrhea. patient poor historian Gen: NAD, follows command Neuro moves EXTx4, CN 2-12 intact HEENT:Mask-like face. Pupils are equally round and reactive to light. He has moist mucous membranes. Car: RRR s1s2 Pul b/l CTA abd soft nt nd +BS EXT no clubbing, cyanosis or edema ASSESSMENT AND PLAN: This is an 81-year-old man underlying Depression, constipation, DPH, Dementia, Anemia, Celiac disease, GERD, DLD, osteoathritis, PCD, Parkinson who presented with syncope, found to be in rhabdomyolysis. PROBLEMS: 1. Syncope, likely related to community-acquired pneumonia.completed levaquin An echocardiogram was unrevealing. He has Parkinson's, which may have predisposed him to a fall as well as numerous cerebrovascular accidents (CVAs) in the past which were previously undiagnosed, including those involving the cerebellum. He is working with physical therapy and currently not safe for home where he lived alone previously. He has essentially no family support and [facility] with [facility] vs [place], vs SNF 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 No evidence of atrial fibrillation. echocardiogram was unrevealing. A carotid duplex and MRI/MRA were also unrevealing. We have started him on a statin and he is continued on an aspirin. He continues to work with physical therapy. 3. Rhabdomyolysis. Nephrology's help is appreciated. Creatine kinases (CKs) are trending down. He is no longer requiring IV fluids. He was mildly fluid overloaded. lasix given. Strict I and O. con't monitor 4. Parkinson's. He is on Sinemet. 5. Elevated aspartate aminotransferase (AST), related to rhabdomyolysis and resolving. 6. Benign prostatic hypertrophy (BPH). He is on Flomax. 7. B12 deficiency. He is on supplementation. 8. Celiac disease. He is on a gluten-free diet. 9. Anemia, asymptomatic . transfused 1 U PRBC, He did have an occult stool for blood that was positive. HH decreased. for concerns of lost to followup if patient is discharged, GI consulted, protonix BID, EGD and colonoscopy done, likely gastritis DVT ppx, SCD, avoid AC given FOBT +. encourage ambulation Dispo pending PT and social work for placement, [place] vs SNFvs home with services VS,Ric, I+O VS, Ric I+Zac Laboratory Tests 08/24/17 06:24 Red Blood Count 2.98 L, Mean Corpuscular Volume 95.6, Mean Corpuscular Hemoglobin 32.6, Mean Corpuscular Hemoglobin Concent 34.0, Red Cell Distribution Width 14.9 H, Calcium Level 8.5 L Vital Signs Date Time Temp Pulse Resp B/P (MAP) Pulse Ox O2 Delivery O2 Flow Rate FiO2 08/24/17 06:00 98.5 68 19 145/71 (95) 96 Room Air SAPNA LEBRON MD Aug 24, 2017 10:33
[2017-08-24 14:00] VITALS: BP 137/95
[2017-08-24] MEDS: ATORVASTATIN 20 MG TAB PO SCH (20:08)
[2017-08-24] MEDS: TAMSULOSIN 0.4 MG CAP PO SCH (20:08)
[2017-08-24 22:00] VITALS: BP 101/57
[2017-08-25 06:00] VITALS: BP 152/77
[2017-08-25 06:03] LABS: MEAN CORPUSCULAR HEMOGLOBIN 32.7 pg (27.0-33.0); MEAN CORPUSCULAR HGB CONC 34.2 g/dl (32.0-36.5); MEAN CORPUSCULAR VOLUME 95.7 fl (80.0-96.0); PLATELET COUNT, AUTOMATED 358 10^3/uL (150-450); RED CELL DISTRIBUTION WIDTH 14.8 % (11.5-14.5); WHITE BLOOD COUNT 9.6 10^3/uL (4.0-10.0)
[2017-08-25 06:21] LABS: ANION GAP 7 MEQ/L (8-16); BLOOD UREA NITROGEN 27 MG/DL (7-18); CALCIUM LEVEL 8.6 MG/DL (8.8-10.2); CARBON DIOXIDE LEVEL 30 MEQ/L (21-32); CHLORIDE LEVEL 105 MEQ/L (98-107); CREATININE FOR GFR 1.09 MG/DL (0.70-1.30); GLOMERULAR FILTRATION RATE > 60.0 (>35); GLUCOSE, FASTING 86 MG/DL (83-110); POTASSIUM SERUM 3.7 MEQ/L (3.5-5.1); SODIUM LEVEL 142 MEQ/L (136-145)
[2017-08-25] MEDS: ALBUTEROL SULFATE 2.5 MG/0.5 ML INH NEB SOLN NEB SCH ×3 (07:17→20:00)
[2017-08-25] MEDS: ASPIRIN 81 MG CHEW TABLET PO SCH (08:10)
[2017-08-25] MEDS: PANTOPRAZOLE 40MG TAB (PROTONIX) PO SCH ×2 (08:10→20:46)
[2017-08-25] MEDS: SODIUM CHLORIDE NASAL 0.65% SPRAY BTL (OCEAN) SCH ×3 (08:10→20:52)
[2017-08-25] MEDS: BUDESONIDE EC 3 MG CAP (ENTOCORT EC) PO SCH (08:10)
[2017-08-25] MEDS: SINEMET 25-100 MG TAB PO SCH ×3 (08:10→20:47)
[2017-08-25] MEDS: CYANOCOBALAMIN 500 MCG TAB PO SCH (08:10)
[2017-08-25 09:42] LABS: VITAMIN B12 LEVEL 969 PG/ML (247-911)
[2017-08-25 09:43] LABS: FOLATE 15.3 NG/ML (>5.4)
--- NOTE | 2017-08-25 13:57 | IPNPDOC ---
Text Note Date of Service The patient was seen on 08/25/17. NOTE No acute events overnight. Denied Chest pain, sob, abd pain/n/v/diarrhea. patient poor historian Gen: NAD, follows command Neuro moves EXTx4, CN 2-12 intact HEENT:Mask-like face. Pupils are equally round and reactive to light. He has moist mucous membranes. Car: RRR s1s2 Pul b/l CTA abd soft nt nd +BS EXT no clubbing, cyanosis or edema ASSESSMENT AND PLAN: This is an 81-year-old man underlying Depression, constipation, DPH, Dementia, Anemia, Celiac disease, GERD, DLD, osteoathritis, PCD, Parkinson who presented with syncope, found to be in rhabdomyolysis. PROBLEMS: 1. Syncope, likely related to community-acquired pneumonia.completed levaquin An echocardiogram was unrevealing. He has Parkinson's, which may have predisposed him to a fall as well as numerous cerebrovascular accidents (CVAs) in the past which were previously undiagnosed, including those involving the cerebellum. c/w PT He has essentially no family support and [facility] [place], vs [facility] 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 No evidence of atrial fibrillation. echocardiogram was unrevealing. A carotid duplex and MRI/MRA were also unrevealing. We have started him on a statin and he is continued on an aspirin. He continues to work with physical therapy. 3. Rhabdomyolysis. Nephrology's help is appreciated. resolved 4. Parkinson's. He is on Sinemet. 5. Elevated aspartate aminotransferase (AST), related to rhabdomyolysis and resolving. 6. Benign prostatic hypertrophy (BPH). He is on Flomax. 7. B12 deficiency. He is on supplementation. 8. Celiac disease. He is on a gluten-free diet. 9. Anemia, asymptomatic . transfused 1 U PRBC, He did have an occult stool for blood that was positive. HH decreased. for concerns of lost to followup if patient is discharged, GI consulted, protonix BID, EGD and colonoscopy done, likely gastritis DVT ppx, SCD, avoid AC given FOBT +. encourage ambulation Dispo pending PT and social work for placement, [place] vs SNF VS,Fishbone, I+O VS, Fishbone, I+O Laboratory Tests 08/25/17 05:24 Red Blood Count 2.81 L, Mean Corpuscular Volume 95.7, Mean Corpuscular Hemoglobin 32.7, Mean Corpuscular Hemoglobin Concent 34.2, Red Cell Distribution Width 14.8 H, Calcium Level 8.6 L Vital Signs Date Time Temp Pulse Resp B/P (MAP) Pulse Ox O2 Delivery O2 Flow Rate FiO2 08/25/17 06:00 98.2 75 17 152/77 (102) 92 Room Air I&O- Last 24 Hours up to 6 AM 08/26/17 06:00 Intake Total 360 ml Balance 360 ml SAPNA LEBRON MD Aug 25, 2017 13:57
[2017-08-25 14:00] VITALS: BP 117/56
[2017-08-25] MEDS: ATORVASTATIN 20 MG TAB PO SCH (20:47)
[2017-08-25] MEDS: TAMSULOSIN 0.4 MG CAP PO SCH (20:47)
[2017-08-25 22:00] VITALS: BP 104/64
[2017-08-26] MEDS: ALBUTEROL SULFATE 2.5 MG/0.5 ML INH NEB SOLN NEB SCH ×4 (00:01→19:52)
[2017-08-26 06:00] VITALS: BP 121/56
[2017-08-26 06:18] LABS: ANION GAP 8 MEQ/L (8-16); BLOOD UREA NITROGEN 27 MG/DL (7-18); CALCIUM LEVEL 8.3 MG/DL (8.8-10.2); CARBON DIOXIDE LEVEL 29 MEQ/L (21-32); CHLORIDE LEVEL 103 MEQ/L (98-107); CREATININE FOR GFR 1.01 MG/DL (0.70-1.30); GLOMERULAR FILTRATION RATE > 60.0 (>35); GLUCOSE, FASTING 92 MG/DL (83-110); MAGNESIUM LEVEL 1.9 MG/DL (1.8-2.4); POTASSIUM SERUM 3.9 MEQ/L (3.5-5.1); SODIUM LEVEL 140 MEQ/L (136-145)
[2017-08-26] MEDS: PANTOPRAZOLE 40MG TAB (PROTONIX) PO SCH ×2 (08:54→20:52)
[2017-08-26] MEDS: SINEMET 25-100 MG TAB PO SCH ×3 (08:54→20:51)
[2017-08-26] MEDS: ASPIRIN 81 MG CHEW TABLET PO SCH (08:55)
[2017-08-26] MEDS: SODIUM CHLORIDE NASAL 0.65% SPRAY BTL (OCEAN) SCH ×3 (08:55→20:54)
[2017-08-26] MEDS: CYANOCOBALAMIN 500 MCG TAB PO SCH (08:55)
[2017-08-26] MEDS: BUDESONIDE EC 3 MG CAP (ENTOCORT EC) PO SCH (08:55)
[2017-08-26 14:00] VITALS: BP 122/60
[2017-08-26] MEDS: ATORVASTATIN 20 MG TAB PO SCH (20:51)
[2017-08-26] MEDS: TAMSULOSIN 0.4 MG CAP PO SCH (20:52)
[2017-08-26 21:00] VITALS: BP 122/60
[2017-08-26 22:00] VITALS: BP 113/67
--- NOTE | 2017-08-26 22:16 | IPN ---
DATE: 08/26/2017 SUBJECTIVE: The patient tells me that he is feeling fine. He is preoccupied with getting his car, getting his checkbook. He is oriented to person, place. He does not know the year. He does not know where he lives. OBJECTIVE: VITAL SIGNS: Temperature 100.2, pulse 83, respiratory rate 18, blood pressure 121/56, oxygen saturation 90% on room air. GENERAL: He is a pleasant, elderly man sitting in a recliner watching television in no acute distress. HEENT: He has a masklike face. Moist mucous membranes. No elevation of central venous pressure (CVP). CARDIOVASCULAR EXAM: S1, S2. Regular. RESPIRATORY EXAM: Clear ABDOMINAL EXAM: Benign. EXTREMITIES: No clubbing, cyanosis or edema. LABORATORY STUDIES: WBC 9.6, hemoglobin 9.2, platelet count 358. Chemistry panel: Sodium 140, potassium 3.9, chloride 103, bicarbonate 29, BUN 27, creatinine 1.0. No new microbiology or imaging. ASSESSMENT AND PLAN: This is an 81-year-old man status post syncopal episode at home. 1. Syncope. Likely multifactorial in nature. He has a relatively new diagnosis of Parkinson's. He also did present with what was suspected to be community-acquired pneumonia and he has completed a course of antibiotics. He continues to work with physical therapy, who have cleared him, from their prospective, for potentially assisted living. He was living at home alone and was unable to ambulate. At the time of his presentation, he was significantly more confused. He is improved at this time, but I suspect he would not do well on his own independently. He may require assisted living versus residential. We did discuss at length at the [facility] rounds this morning about the initiation of a Medicaid application. 2. Old cerebrovascular accident (CVA). No evidence of atrial fibrillation. An echocardiogram was unrevealing. A carotid duplex and MRI/MRA were also unrevealing. He has been started on a statin and continued on an aspirin. 3. Rhabdomyolysis. Resolved. 4. Parkinson's. He is on Sinemet. 5. Normal aspartate aminotransferase (AST). Resolved. 6. Benign prostatic hypertrophy (BPH). He is on Flomax. 7. B12 deficiency. He is on supplementation. 8. Celiac disease. He is on a gluten-free diet. 9. Symptomatic anemia. He is status post one year of packed red blood cells. Hemoglobin and hematocrit (H and H) remain stable. Noticed some gastritis on esophagogastroduodenoscopy (EGD). He is on by mouth twice a day Protonix. 10. Deep venous thrombosis (DVT) prophylaxis. Sequentials and thromboembolitic deterrents (TEDs). DISPOSITION: Likely placement.
[2017-08-27] MEDS: ALBUTEROL SULFATE 2.5 MG/0.5 ML INH NEB SOLN NEB SCH ×4 (01:50→20:53)
[2017-08-27 06:00] VITALS: BP 156/67
[2017-08-27 07:21] LABS: ANION GAP 7 MEQ/L (8-16); BLOOD UREA NITROGEN 26 MG/DL (7-18); CALCIUM LEVEL 8.2 MG/DL (8.8-10.2); CARBON DIOXIDE LEVEL 30 MEQ/L (21-32); CHLORIDE LEVEL 103 MEQ/L (98-107); CREATININE FOR GFR 0.95 MG/DL (0.70-1.30); GLOMERULAR FILTRATION RATE > 60.0 (>35); GLUCOSE, FASTING 86 MG/DL (83-110); POTASSIUM SERUM 3.8 MEQ/L (3.5-5.1); SODIUM LEVEL 140 MEQ/L (136-145)
[2017-08-27 07:36] LABS: MEAN CORPUSCULAR HEMOGLOBIN 33.1 pg (27.0-33.0); MEAN CORPUSCULAR HGB CONC 34.4 g/dl (32.0-36.5); MEAN CORPUSCULAR VOLUME 96.1 fl (80.0-96.0); PLATELET COUNT, AUTOMATED 342 10^3/uL (150-450); RED CELL DISTRIBUTION WIDTH 14.3 % (11.5-14.5); WHITE BLOOD COUNT 9.6 10^3/uL (4.0-10.0)
[2017-08-27] MEDS: ASPIRIN 81 MG CHEW TABLET PO SCH (10:04)
[2017-08-27] MEDS: SINEMET 25-100 MG TAB PO SCH ×3 (10:04→20:43)
[2017-08-27] MEDS: SODIUM CHLORIDE NASAL 0.65% SPRAY BTL (OCEAN) SCH ×3 (10:04→20:43)
[2017-08-27] MEDS: PANTOPRAZOLE 40MG TAB (PROTONIX) PO SCH ×2 (10:04→20:43)
[2017-08-27] MEDS: CYANOCOBALAMIN 500 MCG TAB PO SCH (10:04)
[2017-08-27] MEDS: BUDESONIDE EC 3 MG CAP (ENTOCORT EC) PO SCH (10:06)
[2017-08-27 14:00] VITALS: BP 126/60
--- NOTE | 2017-08-27 14:05 | IPNPDOC ---
Text Note Date of Service The patient was seen on 08/27/17. NOTE SUBJECTIVE: He does appear to be more lucid this morning, although he is hesitant to answer many of my questions. When asked where home is for him he replies "I don't know if I have a home anymore" when pressed further, he is aware of the fact that we do not wish him to be living alone and that he is currently working with discharge planning regarding finding a safe environment for him. Otherwise, he does not have any additional complaints this morning. He is not in pain, he does not have any shortness of breath, chest pressure, or other complaints. OBJECTIVE: GENERAL: He was sleeping when I entered the room, he was easily aroused. He does not appear to be in any acute distress. HEENT. Hearing is grossly intact to conversation, head is normocephalic atraumatic, buccal mucosa is pink and moist with no lesions in the oropharynx Cardiovascular: He does have a grade 2/6 systolic murmur. I cannot appreciate any rubs or gallops Respiratory: Clear to auscultation bilaterally with no wheezes rales or rhonchi Abdomen: Soft, nontender, nondistended, bowel sounds present in Extremities: 2+ pulses in the bilateral radial and dorsalis pedis, he does have trace edema in the feet bilaterally ASSESSMENT AND PLAN: 81-year-old man status post syncopal episode at home. 1. Syncope. Likely multi multifactorial in nature, and he does have a new diagnosis of Parkinson's. He has been cleared by physical therapy, however and given his mental status there is some concern as to whether he will be safe at home alone, or especially driving. Discharge planning is currently underway, and they have initiated his Medicaid application as well. 2. Old cerebrovascular accident (CVA). No evidence of atrial fibrillation. An echocardiogram was unrevealing. A carotid duplex and MRI/MRA were also unrevealing. He continues to be on on a statin and aspirin. 3. Rhabdomyolysis. Resolved. 4. Parkinson's. He is on Sinemet. 5. Normal aspartate aminotransferase (AST). Resolved. 6. Benign prostatic hypertrophy (BPH). He is on Flomax. 7. B12 deficiency. He is on supplementation. 8. Celiac disease. He is on a gluten-free diet. 9. Symptomatic anemia. H&H stable from yesterday, will continue to monitor on a daily basis. Continue twice a day Protonix. 10. Community-acquired pneumonia. He has finished a course of antibiotics. It is now resolved. 10. Deep venous thrombosis (DVT) prophylaxis. Sequentials and thromboembolitic deterrents (TEDs). DISPOSITION: Likely will need placement. VS,Fishbone, I+O VS, Fishbone, I+O Laboratory Tests 08/27/17 06:43 Red Blood Count 2.81 L, Mean Corpuscular Volume 96.1 H, Mean Corpuscular Hemoglobin 33.1 H, Mean Corpuscular Hemoglobin Concent 34.4, Red Cell Distribution Width 14.3, Calcium Level 8.2 L Vital Signs Date Time Temp Pulse Resp B/P (MAP) Pulse Ox O2 Delivery O2 Flow Rate FiO2 08/27/17 06:00 97.9 71 19 156/67 (96) 93 Room Air I&O- Last 24 Hours up to 6 AM 08/28/17 06:00 Intake Total 360 ml Output Total 240 ml Balance 120 ml BRITTANY CLIFFORD DO Aug 27, 2017 14:05
[2017-08-27] MEDS: TAMSULOSIN 0.4 MG CAP PO SCH (20:43)
[2017-08-27] MEDS: ATORVASTATIN 20 MG TAB PO SCH (20:43)
[2017-08-27 22:00] VITALS: BP 128/61
[2017-08-28] MEDS: ALBUTEROL SULFATE 2.5 MG/0.5 ML INH NEB SOLN NEB SCH ×4 (02:16→20:00)
[2017-08-28 06:00] VITALS: BP 117/58
[2017-08-28 06:42] LABS: MEAN CORPUSCULAR HEMOGLOBIN 32.6 pg (27.0-33.0); MEAN CORPUSCULAR HGB CONC 33.5 g/dl (32.0-36.5); MEAN CORPUSCULAR VOLUME 97.3 fl (80.0-96.0); PLATELET COUNT, AUTOMATED 309 10^3/uL (150-450); RED CELL DISTRIBUTION WIDTH 14.1 % (11.5-14.5); WHITE BLOOD COUNT 7.1 10^3/uL (4.0-10.0)
[2017-08-28 07:08] LABS: ANION GAP 7 MEQ/L (8-16); BLOOD UREA NITROGEN 23 MG/DL (7-18); CALCIUM LEVEL 7.9 MG/DL (8.8-10.2); CARBON DIOXIDE LEVEL 28 MEQ/L (21-32); CHLORIDE LEVEL 106 MEQ/L (98-107); CREATININE FOR GFR 0.95 MG/DL (0.70-1.30); GLOMERULAR FILTRATION RATE > 60.0 (>35); GLUCOSE, FASTING 88 MG/DL (83-110); POTASSIUM SERUM 3.7 MEQ/L (3.5-5.1); SODIUM LEVEL 141 MEQ/L (136-145)
[2017-08-28] MEDS: PANTOPRAZOLE 40MG TAB (PROTONIX) PO SCH ×2 (10:25→21:26)
[2017-08-28] MEDS: ASPIRIN 81 MG CHEW TABLET PO SCH (10:25)
[2017-08-28] MEDS: SINEMET 25-100 MG TAB PO SCH ×3 (10:25→21:26)
[2017-08-28] MEDS: CYANOCOBALAMIN 500 MCG TAB PO SCH (10:25)
[2017-08-28] MEDS: SODIUM CHLORIDE NASAL 0.65% SPRAY BTL (OCEAN) SCH ×3 (10:25→21:26)
[2017-08-28] MEDS: BUDESONIDE EC 3 MG CAP (ENTOCORT EC) PO SCH (10:30)
[2017-08-28 14:00] VITALS: BP 128/60
--- NOTE | 2017-08-28 20:01 | IPNPDOC ---
Text Note Date of Service The patient was seen on 08/28/17. NOTE SUBJECTIVE: He does appear to be a little more sedate this morning, although he is interactive. When asked where he lives, he does given address, but is unable to provide me with directions on how to get there from the hospital. He does understand that the plan at this time is to try and find him a new and safe place to live. He does not have any complaints at this time, his entire review of systems is negative. OBJECTIVE: GENERAL: He is sitting upright in the chair. He is in no acute distress. He is awake and alert. HEENT. Hearing is grossly intact to conversation, head is normocephalic atraumatic Cardiovascular: He does have a grade 2/6 systolic murmur. I cannot appreciate any rubs or gallops Respiratory: Clear to auscultation bilaterally with no wheezes rales or rhonchi Abdomen: Soft, nontender, nondistended, bowel sounds present in Extremities: 2+ pulses in the bilateral radial, no rashes or edema ASSESSMENT AND PLAN: 81-year-old man status post syncopal episode at home. 1. Syncope. Likely multi multifactorial in nature, and he does have a new diagnosis of Parkinson's. He has been cleared by physical therapy, however and given his mental status there is some concern as to whether he will be safe at home alone, or especially driving. Discharge planning is currently underway. Medicaid application has been submitted. 2. Old cerebrovascular accident (CVA). No evidence of atrial fibrillation. An echocardiogram was unrevealing. A carotid duplex and MRI/MRA were also unrevealing. He continues to be on on a statin and aspirin. 3. Rhabdomyolysis. Resolved. 4. Parkinson's. He is on Sinemet. 5. Normal aspartate aminotransferase (AST). Resolved. 6. Benign prostatic hypertrophy (BPH). He is on Flomax. 7. B12 deficiency. He is on supplementation. 8. Celiac disease. He is on a gluten-free diet. 9. Symptomatic anemia. H&H actually dropped, there is no evidence of bleeding, will continue to monitor on a daily basis. Continue twice a day Protonix. 10. Community-acquired pneumonia. He has finished a course of antibiotics. It is now resolved. 10. Deep venous thrombosis (DVT) prophylaxis. Sequentials and thromboembolitic deterrents (TEDs). DISPOSITION: Placement. VS,Fishbone, I+O VS, Fishbone, I+O Laboratory Tests 08/28/17 06:15 Red Blood Count 2.61 L, Mean Corpuscular Volume 97.3 H, Mean Corpuscular Hemoglobin 32.6, Mean Corpuscular Hemoglobin Concent 33.5, Red Cell Distribution Width 14.1, Calcium Level 7.9 L Vital Signs Date Time Temp Pulse Resp B/P (MAP) Pulse Ox O2 Delivery O2 Flow Rate FiO2 08/28/17 14:00 98.7 86 18 128/60 (82) 96 Room Air I&O- Last 24 Hours up to 6 AM 08/29/17 06:00 Intake Total 750 ml Output Total 700 ml Balance 50 ml BRITTANY CLIFFORD DO Aug 28, 2017 19:55
[2017-08-28] MEDS: ATORVASTATIN 20 MG TAB PO SCH (21:26)
[2017-08-28] MEDS: TAMSULOSIN 0.4 MG CAP PO SCH (21:26)
[2017-08-28 22:00] VITALS: BP 112/55
[2017-08-29] MEDS: ALBUTEROL SULFATE 2.5 MG/0.5 ML INH NEB SOLN NEB SCH ×5 (01:17→23:53)
[2017-08-29 06:37] LABS: MEAN CORPUSCULAR HEMOGLOBIN 32.1 pg (27.0-33.0); MEAN CORPUSCULAR HGB CONC 33.6 g/dl (32.0-36.5); MEAN CORPUSCULAR VOLUME 95.5 fl (80.0-96.0); PLATELET COUNT, AUTOMATED 318 10^3/uL (150-450); WHITE BLOOD COUNT 6.6 10^3/uL (4.0-10.0)
[2017-08-29 06:53] LABS: ANION GAP 5 MEQ/L (8-16); BLOOD UREA NITROGEN 20 MG/DL (7-18); CALCIUM LEVEL 8.1 MG/DL (8.8-10.2); CARBON DIOXIDE LEVEL 29 MEQ/L (21-32); CHLORIDE LEVEL 108 MEQ/L (98-107); CREATININE FOR GFR 0.86 MG/DL (0.70-1.30); GLOMERULAR FILTRATION RATE > 60.0 (>35); GLUCOSE, FASTING 88 MG/DL (83-110); POTASSIUM SERUM 3.8 MEQ/L (3.5-5.1); SODIUM LEVEL 142 MEQ/L (136-145)
[2017-08-29] MEDS: SINEMET 25-100 MG TAB PO SCH ×3 (08:32→21:36)
[2017-08-29] MEDS: BUDESONIDE EC 3 MG CAP (ENTOCORT EC) PO SCH (08:32)
[2017-08-29] MEDS: PANTOPRAZOLE 40MG TAB (PROTONIX) PO SCH ×2 (08:32→21:36)
[2017-08-29] MEDS: ASPIRIN 81 MG CHEW TABLET PO SCH (08:32)
[2017-08-29] MEDS: CYANOCOBALAMIN 500 MCG TAB PO SCH (08:32)
[2017-08-29] MEDS: SODIUM CHLORIDE NASAL 0.65% SPRAY BTL (OCEAN) SCH ×3 (08:32→21:36)
[2017-08-29 14:00] VITALS: BP 119/56
--- NOTE | 2017-08-29 14:44 | IPNPDOC ---
Text Note Date of Service The patient was seen on 08/29/17. NOTE No acute events overnight. reported b/u 1st dig pain worsen in the am. no injury. poor historian. Denied chest pain, pressure or discomfort. Denied sob, cough, fever, chill Gen: NAD, follows command Neuro moves EXTx4, CN 2-12 intact HEENT:Mask-like face. Pupils are equally round and reactive to light. He has moist mucous membranes. Car: RRR s1s2 Pul b/l CTA abd soft nt nd +BS EXT no clubbing, cyanosis or edema ASSESSMENT AND PLAN: This is an 81-year-old man underlying Depression, constipation, DPH, Dementia, Anemia, Celiac disease, GERD, DLD, osteoathritis, PCD, Parkinson who presented with syncope. 1. Syncope, Multifactorial in nature, newly diagnosis of Parkinson's, MRI showed multiple old infarct pt cleared by physical therapy, however and given his mental status there is some concern as to whether he will be safe at home alone, or especially driving. Pending placement, PFS consulted 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 No evidence of atrial fibrillation. An echocardiogram was unrevealing. A carotid duplex and MRI/MRA were also unrevealing. asa, statin 3. Rhabdomyolysis. resolved, nephrology was involved on admission 4. Parkinson's. He is on Sinemet. 5. Elevated aspartate aminotransferase (AST) resolved 6. Benign prostatic hypertrophy (BPH). He is on Flomax. 7. B12 deficiency. He is on supplementation. 8. Celiac disease. He is on a gluten-free diet. 9. Anemia, asymptomatic . He did have an occult stool for blood that was positive. EGD, colonoscopy appreciated, ppi, 1U PRBC transfused during this admission 10. CAP completed antibiotics DVT ppx, SCD, avoid AC given FOBT +. encourage ambulation Dispo placement VS,Fishbone, I+O VS, Fishbone, I+O Laboratory Tests 08/29/17 06:07 Red Blood Count 2.65 L, Mean Corpuscular Volume 95.5, Mean Corpuscular Hemoglobin 32.1, Mean Corpuscular Hemoglobin Concent 33.6, Red Cell Distribution Width 14.0, Calcium Level 8.1 L Vital Signs Date Time Temp Pulse Resp B/P (MAP) Pulse Ox O2 Delivery O2 Flow Rate FiO2 08/29/17 08:00 Room Air 08/28/17 22:00 98.1 76 18 112/55 (08) 90 I&O- Last 24 Hours up to 6 AM 08/30/17 06:00 Intake Total 360 ml Output Total 450 ml Balance -90 ml SAPNA LEBRON MD Aug 29, 2017 14:44
[2017-08-29] MEDS: ATORVASTATIN 20 MG TAB PO SCH (21:35)
[2017-08-29] MEDS: TAMSULOSIN 0.4 MG CAP PO SCH (21:36)
[2017-08-29 22:00] VITALS: BP 157/72
[2017-08-30 05:45] LABS: MEAN CORPUSCULAR HEMOGLOBIN 31.6 pg (27.0-33.0); MEAN CORPUSCULAR HGB CONC 33.1 g/dl (32.0-36.5); MEAN CORPUSCULAR VOLUME 95.5 fl (80.0-96.0); PLATELET COUNT, AUTOMATED 293 10^3/uL (150-450); RED CELL DISTRIBUTION WIDTH 13.7 % (11.5-14.5); WHITE BLOOD COUNT 5.2 10^3/uL (4.0-10.0)
[2017-08-30 05:57] LABS: ANION GAP 4 MEQ/L (8-16); BLOOD UREA NITROGEN 23 MG/DL (7-18); CALCIUM LEVEL 8.6 MG/DL (8.8-10.2); CARBON DIOXIDE LEVEL 30 MEQ/L (21-32); CHLORIDE LEVEL 107 MEQ/L (98-107); CREATININE FOR GFR 0.89 MG/DL (0.70-1.30); GLOMERULAR FILTRATION RATE > 60.0 (>35); GLUCOSE, FASTING 86 MG/DL (83-110); SODIUM LEVEL 141 MEQ/L (136-145)
[2017-08-30 06:00] VITALS: BP 119/58
[2017-08-30] MEDS: ALBUTEROL SULFATE 2.5 MG/0.5 ML INH NEB SOLN NEB SCH ×4 (07:53→20:00)
[2017-08-30] MEDS: BUDESONIDE EC 3 MG CAP (ENTOCORT EC) PO SCH (10:15)
[2017-08-30] MEDS: ASPIRIN 81 MG CHEW TABLET PO SCH (10:16)
[2017-08-30] MEDS: SINEMET 25-100 MG TAB PO SCH ×3 (10:16→21:02)
[2017-08-30] MEDS: SODIUM CHLORIDE NASAL 0.65% SPRAY BTL (OCEAN) SCH ×3 (10:16→21:02)
[2017-08-30] MEDS: PANTOPRAZOLE 40MG TAB (PROTONIX) PO SCH ×2 (10:16→21:02)
[2017-08-30] MEDS: CYANOCOBALAMIN 500 MCG TAB PO SCH (10:16)
[2017-08-30 14:00] VITALS: BP 131/61
[2017-08-30] MEDS: ATORVASTATIN 20 MG TAB PO SCH (21:01)
[2017-08-30] MEDS: TAMSULOSIN 0.4 MG CAP PO SCH (21:02)
[2017-08-30 22:00] VITALS: BP 106/50
[2017-08-31 06:00] VITALS: BP 131/64
[2017-08-31 06:23] LABS: MEAN CORPUSCULAR HEMOGLOBIN 31.8 pg (27.0-33.0); MEAN CORPUSCULAR HGB CONC 32.8 g/dl (32.0-36.5); MEAN CORPUSCULAR VOLUME 96.8 fl (80.0-96.0); PLATELET COUNT, AUTOMATED 314 10^3/uL (150-450); RED CELL DISTRIBUTION WIDTH 13.5 % (11.5-14.5); WHITE BLOOD COUNT 4.4 10^3/uL (4.0-10.0)
[2017-08-31 06:41] LABS: ANION GAP 7 MEQ/L (8-16); BLOOD UREA NITROGEN 23 MG/DL (7-18); CALCIUM LEVEL 8.2 MG/DL (8.8-10.2); CARBON DIOXIDE LEVEL 28 MEQ/L (21-32); CHLORIDE LEVEL 106 MEQ/L (98-107); CREATININE FOR GFR 0.97 MG/DL (0.70-1.30); GLOMERULAR FILTRATION RATE > 60.0 (>35); GLUCOSE, FASTING 86 MG/DL (83-110); SODIUM LEVEL 141 MEQ/L (136-145)
[2017-08-31] MEDS: ALBUTEROL SULFATE 2.5 MG/0.5 ML INH NEB SOLN NEB SCH ×3 (07:59→19:53)
[2017-08-31] MEDS: BUDESONIDE EC 3 MG CAP (ENTOCORT EC) PO SCH (09:12)
[2017-08-31] MEDS: ASPIRIN 81 MG CHEW TABLET PO SCH (09:12)
[2017-08-31] MEDS: SODIUM CHLORIDE NASAL 0.65% SPRAY BTL (OCEAN) SCH ×3 (09:12→20:45)
[2017-08-31] MEDS: PANTOPRAZOLE 40MG TAB (PROTONIX) PO SCH ×2 (09:12→20:45)
[2017-08-31] MEDS: SINEMET 25-100 MG TAB PO SCH ×3 (09:12→20:45)
[2017-08-31] MEDS: CYANOCOBALAMIN 500 MCG TAB PO SCH (09:12)
[2017-08-31] MEDS: ATORVASTATIN 20 MG TAB PO SCH (20:45)
[2017-08-31] MEDS: TAMSULOSIN 0.4 MG CAP PO SCH (20:45)
[2017-08-31 22:00] VITALS: BP 122/75
[2017-09-01] MEDS: ALBUTEROL SULFATE 2.5 MG/0.5 ML INH NEB SOLN NEB SCH ×4 (02:00→20:22)
[2017-09-01 05:54] LABS: MEAN CORPUSCULAR HEMOGLOBIN 32.4 pg (27.0-33.0); MEAN CORPUSCULAR HGB CONC 33.8 g/dl (32.0-36.5); MEAN CORPUSCULAR VOLUME 95.7 fl (80.0-96.0); PLATELET COUNT, AUTOMATED 301 10^3/uL (150-450); RED CELL DISTRIBUTION WIDTH 13.4 % (11.5-14.5); WHITE BLOOD COUNT 4.9 10^3/uL (4.0-10.0)
[2017-09-01 06:00] VITALS: BP 129/68
[2017-09-01 06:09] LABS: ANION GAP 5 MEQ/L (8-16); BLOOD UREA NITROGEN 26 MG/DL (7-18); CALCIUM LEVEL 8.6 MG/DL (8.8-10.2); CARBON DIOXIDE LEVEL 32 MEQ/L (21-32); CHLORIDE LEVEL 105 MEQ/L (98-107); CREATININE FOR GFR 1.12 MG/DL (0.70-1.30); GLOMERULAR FILTRATION RATE > 60.0 (>35); GLUCOSE, FASTING 87 MG/DL (83-110); SODIUM LEVEL 142 MEQ/L (136-145)
[2017-09-01] MEDS: SODIUM CHLORIDE NASAL 0.65% SPRAY BTL (OCEAN) SCH ×3 (08:14→21:33)
[2017-09-01] MEDS: SINEMET 25-100 MG TAB PO SCH ×3 (08:14→21:33)
[2017-09-01] MEDS: CYANOCOBALAMIN 500 MCG TAB PO SCH (08:14)
[2017-09-01] MEDS: ASPIRIN 81 MG CHEW TABLET PO SCH (08:14)
[2017-09-01] MEDS: PANTOPRAZOLE 40MG TAB (PROTONIX) PO SCH ×2 (08:14→21:33)
[2017-09-01] MEDS: BUDESONIDE EC 3 MG CAP (ENTOCORT EC) PO SCH (08:14)
[2017-09-01 14:00] VITALS: BP 118/58
[2017-09-01] MEDS: TAMSULOSIN 0.4 MG CAP PO SCH (21:33)
[2017-09-01] MEDS: ATORVASTATIN 20 MG TAB PO SCH (21:33)
[2017-09-01 22:00] VITALS: BP 139/72
[2017-09-02] MEDS: ALBUTEROL SULFATE 2.5 MG/0.5 ML INH NEB SOLN NEB SCH ×2 (01:34→07:28)
[2017-09-02 06:00] VITALS: BP 117/61
[2017-09-02 06:43] LABS: MEAN CORPUSCULAR HEMOGLOBIN 31.9 pg (27.0-33.0); MEAN CORPUSCULAR HGB CONC 33.2 g/dl (32.0-36.5); MEAN CORPUSCULAR VOLUME 96.1 fl (80.0-96.0); PLATELET COUNT, AUTOMATED 310 10^3/uL (150-450); RED CELL DISTRIBUTION WIDTH 13.6 % (11.5-14.5); WHITE BLOOD COUNT 5.1 10^3/uL (4.0-10.0)
[2017-09-02 06:52] LABS: ANION GAP 8 MEQ/L (8-16); BLOOD UREA NITROGEN 23 MG/DL (7-18); CALCIUM LEVEL 8.1 MG/DL (8.8-10.2); CARBON DIOXIDE LEVEL 28 MEQ/L (21-32); CHLORIDE LEVEL 106 MEQ/L (98-107); CREATININE FOR GFR 0.99 MG/DL (0.70-1.30); GLOMERULAR FILTRATION RATE > 60.0 (>35); GLUCOSE, FASTING 86 MG/DL (83-110); SODIUM LEVEL 142 MEQ/L (136-145)
[2017-09-02] MEDS: SINEMET 25-100 MG TAB PO SCH (08:00)
[2017-09-02] MEDS: CYANOCOBALAMIN 500 MCG TAB PO SCH (08:00)
[2017-09-02] MEDS: BUDESONIDE EC 3 MG CAP (ENTOCORT EC) PO SCH (08:00)
[2017-09-02] MEDS: SODIUM CHLORIDE NASAL 0.65% SPRAY BTL (OCEAN) SCH (08:00)
[2017-09-02] MEDS: PANTOPRAZOLE 40MG TAB (PROTONIX) PO SCH (08:00)
[2017-09-02] MEDS: ASPIRIN 81 MG CHEW TABLET PO SCH (08:00)
--- NOTE | 2017-09-02 11:27 | DS.PDOC ---
Discharge Summary General Date of Admission Aug 12, 2017 at 09:09 Date of Discharge Sep 02, 2017 Attending Physician: ABAD COUCH DO Specialist/Consultants Involve PCP: SHERYL RAYMOND Discharge Summary CONSULTS: Dr. Beckwith (Nephrology) Dr. Rojas (GI) PROCEDURES: EGD: - Mild esophagitis. Biopsied. - Mucosal changes suspicious for atrophic gastritis. Biopsied. - Moderate to large hiatal hernia. - Normal examined duodenum. Biopsied. Colonoscopy: - Moderate diverticulosis in the sigmoid colon. - Internal hemorrhoids. - The entire colon is otherwise normal on direct and retroflexion views. - The examined portion of the ileum was normal. - No specimens collected. COMPLICATIONS: None ADMISSION / DISCHARGE DIAGNOSIS: 1. Syncope, Multifactorial in nature, newly diagnosis of Parkinson's, MRI showed multiple old infarct pt cleared by physical therapy, however and given his mental status there is some concern as to whether he will be safe at home alone, or especially driving. Pending placement, PFS consulted 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 No evidence of atrial fibrillation. An echocardiogram was unrevealing. A carotid duplex and MRI/MRA were also unrevealing. asa, statin 3. Rhabdomyolysis. resolved, nephrology was involved on admission 4. Parkinson's. He is on Sinemet. 5. Elevated aspartate aminotransferase (AST) resolved 6. Benign prostatic hypertrophy (BPH). He is on Flomax. 7. B12 deficiency. He is on supplementation. 8. Celiac disease. He is on a gluten-free diet. 9. Anemia, asymptomatic . He did have an occult stool for blood that was positive. EGD, colonoscopy appreciated, ppi, 1U PRBC transfused during this admission 10. GI: mild esophagitis, diverticulosis and internal hemorrhoids. Continue PPI and high fiber diet. 11. CAP completed antibiotics BRIEF HOSPITAL COURSE: 81 yo male presented to ED on 08/12/2017 after a questionable syncopal event versus mechanical fall (multifactorial) resulting in mild NIDIA, Rhabdomyolysis and community acquired pneumonia. Additionally, a drop in his H/H precipitated a consult from GI and subsequent EGD/Colonoscopy. Those results suggested: mild esophagitis, diverticulosis and internal hemorrhoids. Started on PPI and gluten free/high fiber diet. He completed a course of antibiotics, respiratory status improved as well her anemia required a one time transfusion of PRBCs. Workup for any new neuro or cardiac cause for syncope were negative including MRI brain and 2D echo. On date of discharge he was felt to back to baseline and appropriate. Please refer to H&P for further information as well Dr. Rojas and Dr. Beckwith's consult notes. PHYSICAL EXAMINATION ON DISCHARGE: VITAL SIGNS: Please see below. GENERAL: NAD, A&OX3 HEENT: PERRLA, throat clear, neck supple, no JVD CARDIOVASCULAR EXAMINATION: RRR RESPIRATORY EXAMINATION: CTA bilaterally ABDOMINAL EXAMINATION: soft, NT/ND, normoactive bowel sounds EXTREMITIES: no edema no calf tenderness SKIN: intact NEUROLOGICAL EXAMINATION: CN'S II-XII grossly intact PSYCHIATRIC EXAMINATION: stable DISCHARGE MEDICATIONS: See below DISCHARGE CONDITION: Good DISPOSITION: Discharge to [facility]; [place], [place] DISCHARGE INSTRUCTIONS: Activity: As tolerated Diet: gluten free Follow up: one week with PCP Seek medical attention should symptoms worsen or progress. Voiced understanding by patient and/or caregiver. TRANSITION OF CARE ISSUES: none TIME SPENT ON DISCHARGE: greater than 35 minutes Please CC: PCP at [facility] Vital Signs/I&Os Vital Signs Date Time Temp Pulse Resp B/P (MAP) Pulse Ox O2 Delivery O2 Flow Rate FiO2 09/02/17 08:00 Room Air 09/02/17 06:00 98.7 69 18 117/61 (79) 92 I&O- Last 24 Hours up to 6 AM 09/03/17 06:00 Intake Total 0 ml Output Total 125 ml Balance -125 ml Laboratory Data Labs 24H Laboratory Tests 2 09/02/17 05:56: Nucleated Red Blood Cells % (auto) 0.0, Anion Gap 8, Glomerular Filtration Rate > 60.0, Blood Urea Nitrogen 23H, Creatinine 0.99, Sodium Level 142, Potassium Level 4.0, Chloride Level 106, Carbon Dioxide Level 28, Calcium Level 8.1L CBC/BMP Laboratory Tests 09/02/17 05:56 Red Blood Count 3.07 L, Mean Corpuscular Volume 96.1 H, Mean Corpuscular Hemoglobin 31.9, Mean Corpuscular Hemoglobin Concent 33.2, Red Cell Distribution Width 13.6, Calcium Level 8.1 L Discharge Medications Scheduled (Aspirin Childrens) 81 Mg Chw, 81 MG PO DAILY, (Reported) Atorvastatin Calcium (Atorvastatin Calcium) 20 Mg Tab, 40 MG PO QHS Budesonide (Budesonide) 3 Mg Cap, 9 MG PO DAILY, (Reported) Carbidopa/Levodopa (Carbidopa/Levodopa 25-100 mg) 1 Tab Tab, 1 TAB PO TID, ( Reported) Cyanocobalamin (Vitamin B-12) 1,000 Mcg Tab, 1,000 MCG PO DAILY, (Reported) Fish Oil (Fish Oil) 1,000 Mg Cap, 2,000 MG PO DAILY, (Reported) Pantoprazole Sodium (Pantoprazole Sodium) 40 Mg Tab, 40 MG PO DAILY Tamsulosin Hydrochloride (Flomax) 0.4 Mg Cap, 0.8 MG PO QHS, (Reported) Scheduled PRN Metoclopramide HCl (Metoclopramide HCl) 5 Mg Tab, 5 MG PO BID PRN for GI UPSET, (Reported) Allergies Coded Allergies: No Known Allergies (Unverified , 08/12/17) ABAD COUCH DO Sep 02, 2017 11:27
== END 2017-09-02 10:45 | DRG 557 ==
LOC: EDBD 04:23 → M ED 04:23 → M ED INP 09:09 → M PCU 08-13 13:08 → M MS4PR 08-16 17:35 → M MSPAV 08-22 19:56
PROVIDERS: ADMIT Internal Medicine; ATTEND Hospitalist
PROC: 0DB68ZX Excision of Stomach, Via Natural or Artificial Opening Endoscopic, Diagnostic (ICD-10-PCS; 2017-08-21)
PROC: 0DJD8ZZ Inspection of Lower Intestinal Tract, Via Natural or Artificial Opening Endoscopic (ICD-10-PCS; 2017-08-21)
PROC: 30233N1 Transfusion of Nonautologous Red Blood Cells into Peripheral Vein, Percutaneous Approach (ICD-10-PCS; principal; 2017-08-23)
DX: M62.82 Rhabdomyolysis (principal); J18.9 Pneumonia, unspecified organism; N17.9 Acute kidney failure, unspecified; K90.0 Celiac disease; G20 Parkinson's disease; K44.9 Diaphragmatic hernia without obstruction or gangrene; Z86.73 Personal history of transient ischemic attack (TIA), and cerebral infarction without residual deficits; N40.0 Benign prostatic hyperplasia without lower urinary tract symptoms; E53.8 Deficiency of other specified B group vitamins; D50.9 Iron deficiency anemia, unspecified; K57.30 Diverticulosis of large intestine without perforation or abscess without bleeding; K64.8 Other hemorrhoids; K20.9 Esophagitis, unspecified; Z79.899 Other long term (current) drug therapy; I73.9 Peripheral vascular disease, unspecified; K21.9 Gastro-esophageal reflux disease without esophagitis; E78.5 Hyperlipidemia, unspecified; M19.90 Unspecified osteoarthritis, unspecified site; Z87.891 Personal history of nicotine dependence; R55 Syncope and collapse; F02.80 Dementia in other diseases classified elsewhere, unspecified severity, without behavioral disturbance, psychotic disturbance, mood disturbance, and anxiety; E87.6 Hypokalemia; Z96.651 Presence of right artificial knee joint; F32.9 Major depressive disorder, single episode, unspecified